=== PATIENT | female | born 1980 | race American Indian/Alaskan Native ===

== ENCOUNTER 2019-03-20 21:26 | Emergency (ER) | payer SELFPAY ==
[2019-03-20 22:30] VITALS: BP 130/82
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
== END 2019-03-21 02:09 | disposition home or self-care (01) ==
LOC: ED 21:26
DX: M54.2 Cervicalgia (principal); M25.511 Pain in right shoulder; F17.200 Nicotine dependence, unspecified, uncomplicated; Z98.51 Tubal ligation status; Z88.1 Allergy status to other antibiotic agents; V49.49XA Driver injured in collision with other motor vehicles in traffic accident, initial encounter; X58.XXXA Exposure to other specified factors, initial encounter; Y93.89 Activity, other specified; Y92.89 Other specified places as the place of occurrence of the external cause; Y99.8 Other external cause status
CPT/HCPCS: 72040

== ENCOUNTER 2021-02-03 23:25 | Emergency (ER) | payer SELFPAY ==
[2021-02-04 01:59] VITALS: BP 137/87
[2021-02-04 02:58] LABS: Basophils % (Auto) 0.7 % (0.0-1.8); Eosinophils % (Auto) 1.1 % (0.0-4.3); Hematocrit 24.3 % (30.3-42.9); Hemoglobin 7.6 gm/dl (10.1-14.3); Lymphocytes % (Auto) 26.9 % (13.4-35.0); Mean Corpuscular HGB Conc 31 % (30-34); Monocytes # (Auto) 0.5 K/mm3 (0.0-0.8); Monocytes % (Auto) 12.1 % (0.0-7.3); Platelet Count 231 K/mm3 (140-440); Red Blood Count 3.66 M/mm3 (3.65-5.03)
[2021-02-04 03:10] LABS: Mean Corpuscular Volume 66 fl (79-97); Red Cell Distribution Width 21.2 % (13.2-15.2)
[2021-02-04 03:19] LABS: Alanine Aminotransferase 20 units/L (7-56); BUN/Creatinine Ratio 8; Blood Urea Nitrogen 6 mg/dL (7-17); Calcium 9.3 mg/dL (8.4-10.2); Hemolysis Index 0
[2021-02-04 03:21] LABS: Erythrocyte Sedimentation Rate 68 mm/Hr (0-20)
--- NOTE | 2021-02-04 05:16 | Emergency Department Report ---
ED General Adult HPI - General Chief complaint: Pain General Stated complaint: BODY ACHES/HANDS/FEET SWELLING Time Seen by Provider: 02/04/21 02:19 Source: patient Mode of arrival: Ambulatory Limitations: No Limitations - Related Data Previous Rx's Medication Instructions Recorded Last Taken Type Nystas/Diphen/Xyl Visc/Mylanta 15 ml MM Q6H PRN #120 ml 06/04/18 Unknown Rx [Magic Mouthwash] Cyclobenzaprine [Flexeril] 10 mg PO QHS #20 tablet 03/21/19 Unknown Rx Ibuprofen [Motrin 800 MG tab] 800 mg PO Q8HR #30 tablet 03/21/19 Unknown Rx Ferrous Sulfate [Iron 325 MG] 325 mg PO DAILY #30 tablet 02/04/21 Unknown Rx Allergies Allergy/AdvReac Type Severity Reaction Status Date / Time amoxicillin Allergy Rash Verified 03/20/19 23:04 ED Review of Systems ROS: Stated complaint: BODY ACHES/HANDS/FEET SWELLING Other details as noted in HPI Comment: All other systems reviewed and negative ED Past Medical Hx - Past Medical History Previous Medical History?: Yes Hx Asthma: Yes Additional medical history: anemia - Surgical History Past Surgical History?: No Additional Surgical History: Tubal Ligation, Csection x 3 - Social History Smoking Status: Current Every Day Smoker Substance Use Type: Marijuana - Medications Home Medications: Home Medications Medication Instructions Recorded Confirmed Last Taken Type Nystas/Diphen/Xyl Visc/Mylanta 15 ml MM Q6H PRN #120 ml 06/04/18 Unknown Rx [Magic Mouthwash] Cyclobenzaprine [Flexeril] 10 mg PO QHS #20 tablet 03/21/19 Unknown Rx Ibuprofen [Motrin 800 MG tab] 800 mg PO Q8HR #30 tablet 03/21/19 Unknown Rx Ferrous Sulfate [Iron 325 MG] 325 mg PO DAILY #30 tablet 02/04/21 Unknown Rx ED Physical Exam - General Limitations: No Limitations General appearance: alert, in no apparent distress - Head Head exam: Present: atraumatic, normocephalic, normal inspection - Eye Eye exam: Present: normal appearance, PERRL, EOMI. Absent: conjunctival injection, nystagmus, periorbital swelling, periorbital tenderness Pupils: Present: normal accommodation - ENT ENT exam: Present: normal exam, normal orophraynx, mucous membranes moist, TM's normal bilaterally - Neck Neck exam: Present: normal inspection, full ROM - Respiratory Respiratory exam: Present: normal lung sounds bilaterally. Absent: respiratory distress, wheezes, rales - Cardiovascular Cardiovascular Exam: Present: regular rate, normal rhythm. Absent: systolic murmur, diastolic murmur, rubs, gallop - GI/Abdominal GI/Abdominal exam: Present: soft, normal bowel sounds - Rectal Rectal exam: Present: normal rectal tone, heme (-) stool, hemorrhoids. Absent: fecal impaction - External exam: Present: normal external exam - Extremities Exam Extremities exam: Present: normal inspection, normal capillary refill - Back Exam Back exam: Present: normal inspection - Neurological Exam Neurological exam: Present: alert, oriented X3 - Psychiatric Psychiatric exam: Present: normal affect, normal mood - Skin Skin exam: Present: warm, dry, intact, normal color. Absent: rash ED Course Vital Signs 02/04/21 00:46 Temperature 99.5 F Pulse Rate 87 Respiratory 18 Rate Blood Pressure 137/87 O2 Sat by Pulse 99 Oximetry ED Medical Decision Making - Lab Data Result diagrams: 02/04/21 02:23 02/04/21 02:23 - EKG Data Rate: normal - Medical Decision Making 40-year-old female with past medical history of anemia presents emerged department complaining of a 2-week history of progressively worsening polyarthralgia associated with fatigue weakness and shortness of breath off and on of unknown etiology. Initially she was suspicious of COVID-19 but had 3 - tests so decided to get checked for her anemia. States has been out of iron pills for some time has been trying to take Geritol with some liquid vitamin. She reports no vaginal bleeding, no hemoptysis no hematemesis hematochezia, no fever, chills, sweats. Vital signs have remained stable throughout her ED visit occult stools were negative as well. Laboratory data suggests a microcytic anemia very unlikely iron Critical care attestation.: If time is entered above; I have spent that time in minutes in the direct care of this critically ill patient, excluding procedure time. ED Disposition Clinical Impression: Anemia, Polyarthralgia, Fatigue Disposition: DC-01 TO HOME OR SELFCARE Is pt being admited?: No Does the pt Need Aspirin: No Condition: Stable Instructions: Ferritin Test, Hematocrit Test, Blood Transfusion, Adult, Care After, [id number], Arthritis, [id number] Prescriptions: Ferrous Sulfate [Iron 325 MG] 325 mg PO DAILY #30 tablet Referrals: PRIMARY CARE, [Primary Care Provider] - 3-5 Days KENZIE LEON MD [Referring] - 3-5 Days JODIE AMBRIZ MD [Referring] - 3-5 Days MELYSSA GROVER MD [Staff Physician] - 3-5 Days BRUNO CASANOVA MD [Staff Physician] - 3-5 Days
== END 2021-02-04 06:30 | disposition home or self-care (01) ==
LOC: ED 23:25
DX: D64.9 Anemia, unspecified (principal); M79.18 Myalgia, other site; M25.59 Pain in other specified joint; J45.909 Unspecified asthma, uncomplicated; R53.83 Other fatigue; F17.200 Nicotine dependence, unspecified, uncomplicated; F12.90 Cannabis use, unspecified, uncomplicated; Z98.890 Other specified postprocedural states; Z79.899 Other long term (current) drug therapy; Z98.51 Tubal ligation status
CPT/HCPCS: 36415; 80053; 84443; 85025; 85652; 86140; 99283

== ENCOUNTER 2021-10-01 13:16 | Inpatient (IN) | payer OTHER ==
[2021-10-01] MEDS ORDERED: SODIUM CHLORIDE 0.9% 1000 ML 1,000 ML IV ONE ×2 (13:40→14:56)
--- NOTE | 2021-10-01 13:44 | Emergency Department Report ---
ED Altered Mental Status HPI - General Chief Complaint: Altered Mental Status Stated Complaint: ALTERED MENTAL STATUS Time Seen by Provider: 10/01/21 13:40 Source: EMS Mode of arrival: Stretcher Limitations: No Limitations - History of Present Illness Initial Comments: Patient is 41 years old female with history of lupus. Patient brought to the emergency room via EMS from home for evaluation of altered mental status and one syncopal episode that happened this morning. EMS stated that patient went to the bathroom and had a syncopal episode and she become altered since then. Patient is alert, oriented in time and person but not in place. Patient stated that she thinks she is in [place]. Patient denied any fever or chills. No previous seizure. Patient currently denying any symptoms including chest pain, shortness of breath, headache, nausea vomiting or weakness numbness or tingling sensation. Patient stated that she does not remember the syncopal episode. MD Complaint: altered mental status, confusion -: Sudden, This morning Associated Symptoms: denies other symptoms - Related Data Home Medications Medication Instructions Recorded Confirmed Last Taken Eliquis 2.5 mg PO BID 10/01/21 10/01/21 Unknown Allergies Allergy/AdvReac Type Severity Reaction Status Date / Time amoxicillin Allergy Rash Verified 03/20/19 23:04 ED Review of Systems ROS: Stated complaint: ALTERED MENTAL STATUS Other details as noted in HPI Comment: All other systems reviewed and negative Constitutional: denies: chills, fever Respiratory: denies: cough, shortness of breath, SOB with exertion Cardiovascular: denies: chest pain, palpitations Gastrointestinal: denies: abdominal pain, nausea, vomiting, diarrhea, constipation, hematemesis, melena, hematochezia Musculoskeletal: denies: back pain Psychiatric: denies: anxiety, depression, auditory hallucinations, visual hallucinations, homicidal thoughts, suicidal thoughts ED Past Medical Hx - Past Medical History Hx Asthma: Yes Additional medical history: anemia - Surgical History Additional Surgical History: Tubal Ligation, Csection x 3 - Social History Smoking Status: Current Every Day Smoker Substance Use Type: Marijuana - Medications Home Medications: Home Medications Medication Instructions Recorded Confirmed Last Taken Type Eliquis 2.5 mg PO BID 10/01/21 10/01/21 Unknown History ED Physical Exam - General Limitations: No Limitations General appearance: alert, in no apparent distress - Head Head exam: Present: atraumatic, normocephalic, normal inspection - Eye Eye exam: Present: normal appearance - ENT ENT exam: Present: normal exam, normal orophraynx, mucous membranes moist - Neck Neck exam: Present: normal inspection, full ROM. Absent: tenderness, meningismus - Respiratory Respiratory exam: Present: normal lung sounds bilaterally - Cardiovascular Cardiovascular Exam: Present: regular rate, normal rhythm, normal heart sounds - GI/Abdominal GI/Abdominal exam: Present: soft, normal bowel sounds. Absent: distended, tenderness, guarding, rebound, rigid, organomegaly, mass, bruit, pulsatile mass, hernia - Extremities Exam Extremities exam: Present: normal inspection, full ROM, normal capillary refill. Absent: tenderness - Back Exam Back exam: Present: normal inspection, full ROM. Absent: CVA tenderness (R), CVA tenderness (L) - Neurological Exam Neurological exam: Present: alert, oriented X3, CN II-XII intact. Absent: motor sensory deficit - Psychiatric Psychiatric exam: Present: normal mood - Skin Skin exam: Present: warm, intact, normal color ED Course Vital Signs 10/01/21 13:21 Pulse Rate 90 Respiratory 14 Rate Blood Pressure 110/76 [Right] O2 Sat by Pulse 97 Oximetry - Reevaluation(s) Reevaluation #1: 10/01/21 15:02 Patient now is alert, oriented x3 in no acute distress. Patient stated that she is feeling fine. Reevaluation #2: 10/01/21 17:02 Patient developed generalized tonic clonic seizure witnessed by nurse. Patient is postictal now. Patient given Ativan and Keppra. - Lab Data Result diagrams: 10/01/21 13:46 10/01/21 13:46 Lab Results 10/01/21 10/01/21 10/01/21 Range/Units 13:46 13:46 13:46 WBC 4.1 L (4.5-11.0) K/mm3 RBC 4.12 (3.65-5.03) M/mm3 Hgb 12.7 (10.1-14.3) gm/dl Hct 39.6 (30.3-42.9) % MCV 96 (79-97) fl MCH 31 (28-32) pg MCHC 32 (30-34) % RDW 13.1 L (13.2-15.2) % Plt Count 152 (140-440) K/mm3 Lymph % (Auto) 14.7 (13.4-35.0) % Howell % (Auto) 5.8 (0.0-7.3) % Eos % (Auto) 0.0 (0.0-4.3) % Baso % (Auto) 0.6 (0.0-1.8) % Lymph # (Auto) 0.6 L (1.2-5.4) K/mm3 Howell # (Auto) 0.2 (0.0-0.8) K/mm3 Eos # (Auto) 0.0 (0.0-0.4) K/mm3 Baso # (Auto) 0.0 (0.0-0.1) K/mm3 Seg Neutrophils % 78.9 H (40.0-70.0) % Seg Neutrophils # 3.2 (1.8-7.7) K/mm3 PT 12.1 L (12.2-14.9) Sec. INR 0.81 L (0.87-1.13) APTT 24.7 (24.2-36.6) Sec. Sodium (137-145) mmol/L Potassium (3.6-5.0) mmol/L Chloride (98-107) mmol/L Carbon Dioxide (22-30) mmol/L Anion Gap mmol/L BUN (7-17) mg/dL Creatinine (0.6-1.2) mg/dL Estimated GFR ml/min BUN/Creatinine Ratio % Glucose (65-100) mg/dL Lactic Acid (0.7-2.0) mmol/L Calcium (8.4-10.2) mg/dL Total Bilirubin (0.1-1.2) mg/dL Direct Bilirubin (0-0.2) mg/dL Indirect Bilirubin mg/dL AST (5-40) units/L ALT (7-56) units/L Alkaline Phosphatase (35-129) units/L Ammonia (25-60) umol/L Total Creatine Kinase (30-135) units/L Troponin T 0.017 (0.00-0.029) ng/mL Total Protein (6.3-8.2) g/dL Albumin (3.9-5) g/dL Albumin/Globulin Ratio % HCG, Qual (Negative) Urine Color (Yellow) Urine Turbidity (Clear) Urine pH (5.0-7.0) Ur Specific [place] (1.003-1.030) Urine Protein (Negative) mg/dL Urine Glucose (UA) (Negative) mg/dL Urine Ketones (Negative) mg/dL Urine Blood (Negative) Urine Nitrite (Negative) Urine Bilirubin (Negative) Urine Urobilinogen (<2.0) mg/dL Ur Leukocyte Esterase (Negative) Urine WBC (Auto) (0.0-6.0) /HPF Urine RBC (Auto) (0.0-6.0) /HPF U Epithel Cells (Auto) (0-13.0) /HPF Urine Bacteria (Auto) (Negative) /HPF Plasma/Serum Alcohol (0-0.07) % Blood Type Antibody Screen 10/01/21 10/01/21 10/01/21 Range/Units 13:46 13:46 13:46 WBC (4.5-11.0) K/mm3 RBC (3.65-5.03) M/mm3 Hgb (10.1-14.3) gm/dl Hct (30.3-42.9) % MCV (79-97) fl MCH (28-32) pg MCHC (30-34) % RDW (13.2-15.2) % Plt Count (140-440) K/mm3 Lymph % (Auto) (13.4-35.0) % Howell % (Auto) (0.0-7.3) % Eos % (Auto) (0.0-4.3) % Baso % (Auto) (0.0-1.8) % Lymph # (Auto) (1.2-5.4) K/mm3 Howell # (Auto) (0.0-0.8) K/mm3 Eos # (Auto) (0.0-0.4) K/mm3 Baso # (Auto) (0.0-0.1) K/mm3 Seg Neutrophils % (40.0-70.0) % Seg Neutrophils # (1.8-7.7) K/mm3 PT (12.2-14.9) Sec. INR (0.87-1.13) APTT (24.2-36.6) Sec. Sodium 139 (137-145) mmol/L Potassium 3.0 L (3.6-5.0) mmol/L Chloride 102.6 (98-107) mmol/L Carbon Dioxide 19 L (22-30) mmol/L Anion Gap 20 mmol/L BUN 11 (7-17) mg/dL Creatinine 1.0 (0.6-1.2) mg/dL Estimated GFR > 60 ml/min BUN/Creatinine Ratio 11 % Glucose 89 (65-100) mg/dL Lactic Acid 3.70 H* (0.7-2.0) mmol/L Calcium 8.7 (8.4-10.2) mg/dL Total Bilirubin 0.20 (0.1-1.2) mg/dL Direct Bilirubin < 0.2 (0-0.2) mg/dL Indirect Bilirubin 0.0 mg/dL AST 15 (5-40) units/L ALT 7 (7-56) units/L Alkaline Phosphatase 61 (35-129) units/L Ammonia 21.0 L (25-60) umol/L Total Creatine Kinase 57 (30-135) units/L Troponin T 0.018 (0.00-0.029) ng/mL Total Protein 6.0 L (6.3-8.2) g/dL Albumin 2.8 L (3.9-5) g/dL Albumin/Globulin Ratio 0.9 % HCG, Qual (Negative) Urine Color (Yellow) Urine Turbidity (Clear) Urine pH (5.0-7.0) Ur Specific [place] (1.003-1.030) Urine Protein (Negative) mg/dL Urine Glucose (UA) (Negative) mg/dL Urine Ketones (Negative) mg/dL Urine Blood (Negative) Urine Nitrite (Negative) Urine Bilirubin (Negative) Urine Urobilinogen (<2.0) mg/dL Ur Leukocyte Esterase (Negative) Urine WBC (Auto) (0.0-6.0) /HPF Urine RBC (Auto) (0.0-6.0) /HPF U Epithel Cells (Auto) (0-13.0) /HPF Urine Bacteria (Auto) (Negative) /HPF Plasma/Serum Alcohol (0-0.07) % Blood Type Antibody Screen 10/01/21 10/01/21 10/01/21 Range/Units 13:46 13:46 13:46 WBC (4.5-11.0) K/mm3 RBC (3.65-5.03) M/mm3 Hgb (10.1-14.3) gm/dl Hct (30.3-42.9) % MCV (79-97) fl MCH (28-32) pg MCHC (30-34) % RDW (13.2-15.2) % Plt Count (140-440) K/mm3 Lymph % (Auto) (13.4-35.0) % Howell % (Auto) (0.0-7.3) % Eos % (Auto) (0.0-4.3) % Baso % (Auto) (0.0-1.8) % Lymph # (Auto) (1.2-5.4) K/mm3 Howell # (Auto) (0.0-0.8) K/mm3 Eos # (Auto) (0.0-0.4) K/mm3 Baso # (Auto) (0.0-0.1) K/mm3 Seg Neutrophils % (40.0-70.0) % Seg Neutrophils # (1.8-7.7) K/mm3 PT (12.2-14.9) Sec. INR (0.87-1.13) APTT (24.2-36.6) Sec. Sodium (137-145) mmol/L Potassium (3.6-5.0) mmol/L Chloride (98-107) mmol/L Carbon Dioxide (22-30) mmol/L Anion Gap mmol/L BUN (7-17) mg/dL Creatinine (0.6-1.2) mg/dL Estimated GFR ml/min BUN/Creatinine Ratio % Glucose (65-100) mg/dL Lactic Acid (0.7-2.0) mmol/L Calcium (8.4-10.2) mg/dL Total Bilirubin (0.1-1.2) mg/dL Direct Bilirubin (0-0.2) mg/dL Indirect Bilirubin mg/dL AST (5-40) units/L ALT (7-56) units/L Alkaline Phosphatase (35-129) units/L Ammonia (25-60) umol/L Total Creatine Kinase (30-135) units/L Troponin T (0.00-0.029) ng/mL Total Protein (6.3-8.2) g/dL Albumin (3.9-5) g/dL Albumin/Globulin Ratio % HCG, Qual Negative (Negative) Urine Color (Yellow) Urine Turbidity (Clear) Urine pH (5.0-7.0) Ur Specific [place] (1.003-1.030) Urine Protein (Negative) mg/dL Urine Glucose (UA) (Negative) mg/dL Urine Ketones (Negative) mg/dL Urine Blood (Negative) Urine Nitrite (Negative) Urine Bilirubin (Negative) Urine Urobilinogen (<2.0) mg/dL Ur Leukocyte Esterase (Negative) Urine WBC (Auto) (0.0-6.0) /HPF Urine RBC (Auto) (0.0-6.0) /HPF U Epithel Cells (Auto) (0-13.0) /HPF Urine Bacteria (Auto) (Negative) /HPF Plasma/Serum Alcohol < 0.01 (0-0.07) % Blood Type O POSITIVE Antibody Screen Negative 10/01/21 Range/Units Unknown WBC (4.5-11.0) K/mm3 RBC (3.65-5.03) M/mm3 Hgb (10.1-14.3) gm/dl Hct (30.3-42.9) % MCV (79-97) fl MCH (28-32) pg MCHC (30-34) % RDW (13.2-15.2) % Plt Count (140-440) K/mm3 Lymph % (Auto) (13.4-35.0) % Howell % (Auto) (0.0-7.3) % Eos % (Auto) (0.0-4.3) % Baso % (Auto) (0.0-1.8) % Lymph # (Auto) (1.2-5.4) K/mm3 Howell # (Auto) (0.0-0.8) K/mm3 Eos # (Auto) (0.0-0.4) K/mm3 Baso # (Auto) (0.0-0.1) K/mm3 Seg Neutrophils % (40.0-70.0) % Seg Neutrophils # (1.8-7.7) K/mm3 PT (12.2-14.9) Sec. INR (0.87-1.13) APTT (24.2-36.6) Sec. Sodium (137-145) mmol/L Potassium (3.6-5.0) mmol/L Chloride (98-107) mmol/L Carbon Dioxide (22-30) mmol/L Anion Gap mmol/L BUN (7-17) mg/dL Creatinine (0.6-1.2) mg/dL Estimated GFR ml/min BUN/Creatinine Ratio % Glucose (65-100) mg/dL Lactic Acid (0.7-2.0) mmol/L Calcium (8.4-10.2) mg/dL Total Bilirubin (0.1-1.2) mg/dL Direct Bilirubin (0-0.2) mg/dL Indirect Bilirubin mg/dL AST (5-40) units/L ALT (7-56) units/L Alkaline Phosphatase (35-129) units/L Ammonia (25-60) umol/L Total Creatine Kinase (30-135) units/L Troponin T (0.00-0.029) ng/mL Total Protein (6.3-8.2) g/dL Albumin (3.9-5) g/dL Albumin/Globulin Ratio % HCG, Qual (Negative) Urine Color Yellow (Yellow) Urine Turbidity Hazy (Clear) Urine pH 7.0 (5.0-7.0) Ur Specific [place] 1.009 (1.003-1.030) Urine Protein >500 (Negative) mg/dL Urine Glucose (UA) Neg (Negative) mg/dL Urine Ketones Neg (Negative) mg/dL Urine Blood Lg (Negative) Urine Nitrite Neg (Negative) Urine Bilirubin Neg (Negative) Urine Urobilinogen < 2.0 (<2.0) mg/dL Ur Leukocyte Esterase Neg (Negative) Urine WBC (Auto) 17.0 H (0.0-6.0) /HPF Urine RBC (Auto) 34.0 (0.0-6.0) /HPF U Epithel Cells (Auto) 1.0 (0-13.0) /HPF Urine Bacteria (Auto) 1+ (Negative) /HPF Plasma/Serum Alcohol (0-0.07) % Blood Type Antibody Screen Critical Care Time: Yes Critical care time in (mins) excluding proc time.: 45 Critical care attestation.: If time is entered above; I have spent that time in minutes in the direct care of this critically ill patient, excluding procedure time. ED Disposition Clinical Impression: Altered mental status, Seizure Disposition: 09 ADMITTED INPATIENT Is pt being admited?: Yes Condition: Stable
[2021-10-01 14:27] LABS: Basophils % (Auto) 0.6 % (0.0-1.8); Hematocrit 39.6 % (30.3-42.9); Hemoglobin 12.7 gm/dl (10.1-14.3); Lymphocytes # (Auto) 0.6 K/mm3 (1.2-5.4); Lymphocytes % (Auto) 14.7 % (13.4-35.0); Mean Corpuscular HGB Conc 32 % (30-34); Mean Corpuscular Volume 96 fl (79-97); Monocytes # (Auto) 0.2 K/mm3 (0.0-0.8); Monocytes % (Auto) 5.8 % (0.0-7.3); Platelet Count 152 K/mm3 (140-440); Red Blood Count 4.12 M/mm3 (3.65-5.03); Red Cell Distribution Width 13.1 % (13.2-15.2)
--- NOTE | 2021-10-01 14:31 | Cat Scan Report ---
CT BRAIN: 10/01/2021 INDICATION / CLINICAL INFORMATION: Altered Mental Status. COMPARISON: None available. FINDINGS: BRAIN/INTRACRANIAL STRUCTURES: Unenhanced CT images of the brain demonstrate no evidence of acute abn ormality. Ventricles and sulci are at the upper limits of normal in size and shape for a patient of this age. There is no evidence of acute ischemic injury, hemorrhage, or mass. There are no abnormal extra-axial fluid collections. EXTRACRANIAL STRUCTURES: Unremarkable. IMPRESSION: No acute abnormality. All CT scans at this location are performed using dose reduction to ALARA by means of automated expos ure control. Signer Name: Albert Weston MD Signed: 10/01/2021 2:27 PM Workstation Name: [email or web address]
[2021-10-01 14:35] LABS: Alanine Aminotransferase 7 units/L (7-56); Albumin 2.8 g/dL (3.9-5); BUN/Creatinine Ratio 11; Blood Urea Nitrogen 11 mg/dL (7-17); Calcium 8.7 mg/dL (8.4-10.2); Hemolysis Index 20
[2021-10-01 14:36] LABS: Bilirubin,Direct < 0.2 mg/dL (0-0.2); INR 0.81 (0.87-1.13); Partial Thromboplastin Time 24.7 Sec. (24.2-36.6)
--- NOTE | 2021-10-01 14:56 | XRay Report ---
CHEST 1 VIEW INDICATION: Altered Mental Status. COMPARISON: None FINDINGS: Support devices: None. Heart: Mild cardiomegaly Lungs/Pleura: Mild pulmonary venous congestion and small left pleural effusion. No infiltrate or pneu mothorax. Additional findings: None. IMPRESSION: Mild CHF Signer Name: Jose Hollis Jr, MD Signed: 10/01/2021 2:52 PM Workstation Name: [id number]
[2021-10-01] MEDS: POTASSIUM CHLORIDE 10 MEQ 10 MEQ/100 ML BAG IV SCH ×2 (15:49→16:37)
[2021-10-01] MEDS ORDERED: MORPHINE 4 MG/1 ML INJ IV ONE (16:39)
[2021-10-01] MEDS ORDERED: hydrALAZINE 20 MG/1 ML INJ IV ONE (16:39)
[2021-10-01] MEDS ORDERED: ONDANSETRON 4 MG/2 ML INJ IV ONE (16:39)
[2021-10-01] MEDS ORDERED: LORazepam 2 MG/ML VIAL ONE (16:45)
[2021-10-01] MEDS ORDERED: levETIRAcetam 1,000 MG in DEXTROSE 5% IN WATER 100 ML IV ONE (16:47)
[2021-10-01] MEDS ORDERED: LORazepam 2 MG/ML VIAL IV ONE (16:54)
[2021-10-01 16:55] LABS: Bacteria,Urine 1+ /HPF (Negative); Bilirubin,Urine NEG (Negative); Blood,Urine LG (Negative); Color,Urine Yellow (Yellow); Urobilinogen,Urine < 2.0 mg/dL (<2.0)
[2021-10-01 16:57] LABS: Protein,Urine >500 mg/dL (Negative)
[2021-10-01] MEDS ORDERED: levETIRAcetam 1000 MG/NS 0.75% 1,000 MG/100 ML BAG IV ONE (16:57)
[2021-10-01 17:03] LABS: Amphetamine Screen,Urine Negative; Benzodiazepines Screen,Urine Negative; Cocaine Screen,Urine Negative; Methadone Screen,Urine Negative; Opiate Screen,Urine Negative
[2021-10-01 17:19] LABS: Cannabinoid Screen,Urine Positive
[2021-10-01] MEDS ORDERED: oxyCODONE /ACETAMINOPHEN 5-325MG TAB PO PRN (21:02)
[2021-10-01] MEDS ORDERED: HYDROmorphone 1 MG/1 ML INJ IV PRN (21:02)
[2021-10-01] MEDS ORDERED: ACETAMINOPHEN 325 MG TAB PO PRN (21:02)
[2021-10-01] MEDS ORDERED: METOCLOPRAMIDE 10 MG/2 ML INJ IV PRN (21:02)
[2021-10-01] MEDS ORDERED: ONDANSETRON 4 MG/2 ML INJ IV PRN (21:02)
--- NOTE | 2021-10-01 21:02 | History and Physical Report ---
History of Present Illness Date of examination: 10/01/21 Date of admission: October 01, 2021 Chief complaint: Seizures X2 today--first time in her life History of present illness: 41-year-old female with history of lupus and on anticoagulation brought in by EMS from home for new onset seizures. Patient had 2 episodes of seizure. 1 episode in the home and one episode in the emergency room. Tonic-clonic movements. Patient is confused and altered. Patient thinks that she is in [place]. at the bedside. As per the no previous seizures. Has a history of lupus and being treated for it. Also has asthma. No fever or chills. Vaccination status was not asked. Will defer to primary team - Past Medical History --Asthma: Yes --Additional medical history: anemia --Lupus - Surgical History --Additional Surgical History: Tubal Ligation, Csection x 3 - Social History --Smoking Status: Current Every Day Smoker --Substance Use Type: Marijuana -Family history --Htn Review of Systems ROS: Constitutional no weight loss or weight gain no fever or chills HEENT no sore throat no post nasal drip no diplopia Neck no neck stiffness no lymph gland enlargement Chest and lungs no shortness of breath cough or wheezing CVS no chest pain no diaphoresis no palpitations GI no nausea no vomiting no diarrhea Genitourinary system no dysuria no flank pain Musculoskeletal system no muscle pains no joint pains [employer] new onset seizures and altered sensorium Skin no rash no itching Psychiatric no depression no homicidal or suicidal tendencies Hematologic no lymphedema or bruising Endocrine no polydipsia no polyuria no cold intolerance no heat intolerance Medications and Allergies Allergies Allergy/AdvReac Type Severity Reaction Status Date / Time amoxicillin Allergy Rash Verified 03/20/19 23:04 Home Medications Medication Instructions Recorded Confirmed Last Taken Type Albuterol Sulfate [Proair 90 mcg 10/01/21 Unknown History Respiclick] Beclomethasone Dipropionate [Qvar] 8.7 gm 10/01/21 Unknown History Budesonide-Formoterol 80-4.5 10/01/21 Unknown History Eliquis 2.5 mg PO BID 10/01/21 10/01/21 Unknown History Folic Acid 1 mg PO DAILY 10/01/21 10/01/21 Unknown History Furosemide [Lasix TAB] 20 mg PO DAILY 10/01/21 10/01/21 Unknown History Hydroxychloroquine 200 mg PO DAILY 10/01/21 10/01/21 Unknown History amLODIPine 10 mg PO DAILY 10/01/21 10/01/21 Unknown History carvediloL 6.25 mg PO BID 10/01/21 10/01/21 Unknown History Exam - Constitutional Vitals: Temp Pulse Resp BP Pulse Ox 78 16 162/88 97 10/01/21 17:52 10/01/21 17:52 10/01/21 17:52 10/01/21 17:52 General appearance: Present: no acute distress, well-nourished - EENT Eyes: Present: PERRL ENT: hearing intact, clear oral mucosa - Neck Neck: Present: supple, normal ROM - Respiratory Respiratory effort: normal Respiratory: bilateral: CTA - Cardiovascular Heart rate: 78 Rhythm: regular Heart Sounds: Present: S1 & S2. Absent: rub, click - Extremities Extremities: no ischemia, pulses symmetrical, No edema Peripheral Pulses: within normal limits - Abdominal General gastrointestinal: Present: soft, non-tender, non-distended, normal bowel sounds Female genitourinary: Present: normal - Rectal Rectal Exam: deferred - Integumentary Integumentary: Present: clear, warm, dry - Musculoskeletal Musculoskeletal: gait normal, strength equal bilaterally - Psychiatric Psychiatric: appropriate mood/affect, intact judgment & insight - Neurologic Neurologic: CNII-XII intact, moves all extremities, other (Altered sensorium and patient is postictal) HEART Score - HEART Score Troponin: Troponin T 0.017 ng/mL (0.00-0.029) 10/01/21 13:46 Troponin T 0.018 ng/mL (0.00-0.029) 10/01/21 13:46 Results - Labs CBC & Chem 7: 10/01/21 13:46 10/01/21 13:46 Labs: Laboratory Last Values WBC 4.1 K/mm3 (4.5-11.0) L 10/01/21 13:46 RBC 4.12 M/mm3 (3.65-5.03) 10/01/21 13:46 Hgb 12.7 gm/dl (10.1-14.3) 10/01/21 13:46 Hct 39.6 % (30.3-42.9) 10/01/21 13:46 MCV 96 fl (79-97) 10/01/21 13:46 MCH 31 pg (28-32) 10/01/21 13:46 MCHC 32 % (30-34) 10/01/21 13:46 RDW 13.1 % (13.2-15.2) L 10/01/21 13:46 Plt Count 152 K/mm3 (140-440) 10/01/21 13:46 Lymph % (Auto) 14.7 % (13.4-35.0) 10/01/21 13:46 [place] % (Auto) 5.8 % (0.0-7.3) 10/01/21 13:46 Eos % (Auto) 0.0 % (0.0-4.3) 10/01/21 13:46 Baso % (Auto) 0.6 % (0.0-1.8) 10/01/21 13:46 Lymph # (Auto) 0.6 K/mm3 (1.2-5.4) L 10/01/21 13:46 [place] # (Auto) 0.2 K/mm3 (0.0-0.8) 10/01/21 13:46 Eos # (Auto) 0.0 K/mm3 (0.0-0.4) 10/01/21 13:46 Baso # (Auto) 0.0 K/mm3 (0.0-0.1) 10/01/21 13:46 Seg Neutrophils % 78.9 % (40.0-70.0) H 10/01/21 13:46 Seg Neutrophils # 3.2 K/mm3 (1.8-7.7) 10/01/21 13:46 PT 12.1 Sec. (12.2-14.9) L 10/01/21 13:46 INR 0.81 (0.87-1.13) L 10/01/21 13:46 APTT 24.7 Sec. (24.2-36.6) 10/01/21 13:46 Sodium 139 mmol/L (137-145) 10/01/21 13:46 Potassium 3.0 mmol/L (3.6-5.0) L 10/01/21 13:46 Chloride 102.6 mmol/L (98-107) 10/01/21 13:46 Carbon Dioxide 19 mmol/L (22-30) L 10/01/21 13:46 Anion Gap 20 mmol/L 10/01/21 13:46 BUN 11 mg/dL (7-17) 10/01/21 13:46 Creatinine 1.0 mg/dL (0.6-1.2) 10/01/21 13:46 Estimated GFR > 60 ml/min 10/01/21 13:46 BUN/Creatinine Ratio 11 % 10/01/21 13:46 Glucose 89 mg/dL (65-100) 10/01/21 13:46 Lactic Acid 3.70 mmol/L (0.7-2.0) H* 10/01/21 13:46 Calcium 8.7 mg/dL (8.4-10.2) 10/01/21 13:46 Total Bilirubin 0.20 mg/dL (0.1-1.2) 10/01/21 13:46 Direct Bilirubin < 0.2 mg/dL (0-0.2) 10/01/21 13:46 Indirect Bilirubin 0.0 mg/dL 10/01/21 13:46 AST 15 units/L (5-40) 10/01/21 13:46 ALT 7 units/L (7-56) 10/01/21 13:46 Alkaline Phosphatase 61 units/L (35-129) 10/01/21 13:46 Ammonia 21.0 umol/L (25-60) L 10/01/21 13:46 Total Creatine Kinase 57 units/L (30-135) 10/01/21 13:46 Troponin T 0.017 ng/mL (0.00-0.029) 10/01/21 13:46 Troponin T 0.018 ng/mL (0.00-0.029) 10/01/21 13:46 Total Protein 6.0 g/dL (6.3-8.2) L 10/01/21 13:46 Albumin 2.8 g/dL (3.9-5) L 10/01/21 13:46 Albumin/Globulin Ratio 0.9 % 10/01/21 13:46 HCG, Qual Negative (Negative) 10/01/21 13:46 Urine Color Yellow (Yellow) 10/01/21 Unknown Urine Turbidity Hazy (Clear) 10/01/21 Unknown Urine pH 7.0 (5.0-7.0) 10/01/21 Unknown Ur Specific [place] 1.009 (1.003-1.030) 10/01/21 Unknown Urine Protein >500 mg/dL (Negative) 10/01/21 Unknown Urine Glucose (UA) Neg mg/dL (Negative) 10/01/21 Unknown Urine Ketones Neg mg/dL (Negative) 10/01/21 Unknown Urine Blood Lg (Negative) 10/01/21 Unknown Urine Nitrite Neg (Negative) 10/01/21 Unknown Urine Bilirubin Neg (Negative) 10/01/21 Unknown Urine Urobilinogen < 2.0 mg/dL (<2.0) 10/01/21 Unknown Ur Leukocyte Esterase Neg (Negative) 10/01/21 Unknown Urine WBC (Auto) 17.0 /HPF (0.0-6.0) H 10/01/21 Unknown Urine RBC (Auto) 34.0 /HPF (0.0-6.0) 10/01/21 Unknown U Epithel Cells (Auto) 1.0 /HPF (0-13.0) 10/01/21 Unknown Urine Bacteria (Auto) 1+ /HPF (Negative) 10/01/21 Unknown Urine Opiates Screen Negative 10/01/21 Unknown Urine Methadone Screen Negative 10/01/21 Unknown Ur Barbiturates Screen Negative 10/01/21 Unknown Ur Phencyclidine Scrn Negative 10/01/21 Unknown Ur Amphetamines Screen Negative 10/01/21 Unknown U Benzodiazepines Scrn Negative 10/01/21 Unknown Urine Cocaine Screen Negative 10/01/21 Unknown U Marijuana (THC) Screen Positive 10/01/21 Unknown Drugs of Abuse Note Disclamer 10/01/21 Unknown Plasma/Serum Alcohol < 0.01 % (0-0.07) 10/01/21 13:46 Blood Type O POSITIVE 10/01/21 13:46 Antibody Screen Negative 10/01/21 13:46 Short CBC 10/01/21 Range/Units 13:46 WBC 4.1 L (4.5-11.0) K/mm3 Hgb 12.7 (10.1-14.3) gm/dl Hct 39.6 (30.3-42.9) % Plt Count 152 (140-440) K/mm3 BMP 10/01/21 13:46 Sodium 139 Potassium 3.0 L Chloride 102.6 Carbon Dioxide 19 L BUN 11 Creatinine 1.0 Glucose 89 Calcium 8.7 Cardiac Enzymes 10/01/21 10/01/21 Range/Units 13:46 13:46 Total Creatine Kinase 57 (30-135) units/L Troponin T 0.017 0.018 (0.00-0.029) ng/mL Liver Function 10/01/21 Range/Units 13:46 Total Bilirubin 0.20 (0.1-1.2) mg/dL Direct Bilirubin < 0.2 (0-0.2) mg/dL AST 15 (5-40) units/L ALT 7 (7-56) units/L Alkaline Phosphatase 61 (35-129) units/L Albumin 2.8 L (3.9-5) g/dL Urine 10/01/21 Range/Units Unknown Urine Color Yellow (Yellow) Urine pH 7.0 (5.0-7.0) Ur Specific [place] 1.009 (1.003-1.030) Urine Protein >500 (Negative) mg/dL Urine Glucose (UA) Neg (Negative) mg/dL Short CBC 10/01/21 Range/Units 13:46 WBC 4.1 L (4.5-11.0) K/mm3 Hgb 12.7 (10.1-14.3) gm/dl Hct 39.6 (30.3-42.9) % Plt Count 152 (140-440) K/mm3 BMP 10/01/21 13:46 Sodium 139 Potassium 3.0 L Chloride 102.6 Carbon Dioxide 19 L BUN 11 Creatinine 1.0 Glucose 89 Calcium 8.7 Cardiac Enzymes 10/01/21 10/01/21 Range/Units 13:46 13:46 Total Creatine Kinase 57 (30-135) units/L Troponin T 0.017 0.018 (0.00-0.029) ng/mL Liver Function 10/01/21 Range/Units 13:46 Total Bilirubin 0.20 (0.1-1.2) mg/dL Direct Bilirubin < 0.2 (0-0.2) mg/dL AST 15 (5-40) units/L ALT 7 (7-56) units/L Alkaline Phosphatase 61 (35-129) units/L Albumin 2.8 L (3.9-5) g/dL Urine 10/01/21 Range/Units Unknown Urine Color Yellow (Yellow) Urine pH 7.0 (5.0-7.0) Ur Specific [place] 1.009 (1.003-1.030) Urine Protein >500 (Negative) mg/dL Urine Glucose (UA) Neg (Negative) mg/dL Microbiology: Microbiology 10/01/21 13:46 Peripheral/Venous Blood Culture - Preliminary Culture in Progress 10/01/21 13:46 Peripheral/Venous Blood Culture - Preliminary Culture in Progress - Imaging and Cardiology Chest x-ray: report reviewed CT Scan - head: report reviewed Imaging and Cardiology: Chest x-ray Mild CHF Head CT No acute abnormalities Assessment and Plan Advance Directives: Yes (Full code) VTE prophylaxis?: Chemical Plan of care discussed with patient/family: Yes - Patient Problems (1) Acute encephalopathy Current Visit: Yes Status: Acute Plan to address problem: Patient is postictal and secondary to new onset seizures Patient had one episode of seizures and while in the emergency room--tonic-clonic type Patient started on IV Keppra To be transitioned to oral Keppra (2) New onset seizure Current Visit: Yes Status: Acute Plan to address problem: Patient started on IV Keppra Neurology consult requested (3) Hypokalemia Current Visit: Yes Status: Acute Plan to address problem: Supplemented (4) Elevated lactic acid level Current Visit: Yes Status: Acute Plan to address problem: Nonspecific Probably secondary to seizures (5) Lupus (systemic lupus erythematosus) Current Visit: Yes Status: Chronic Qualifiers: Systemic lupus erythematosus type: unspecified Plan to address problem: Not on any medications Patient to be asked about her lupus symptoms and medications We will defer to primary team (6) UTI (urinary tract infection) Current Visit: Yes Status: Acute Qualifiers: Urinary tract infection type: acute cystitis Plan to address problem: Macrobid 100 mg orally twice a day (7) DVT prophylaxis Current Visit: Yes Status: Acute Plan to address problem: On anticoagulation and GI prophylaxis (8) Advance care planning Current Visit: Yes Status: Acute Plan to address problem: Patient education conducted, care plan discussed, diagnosis discussed with . Prognosis discussed. Patient is full code. acknowledges understanding and agreement with care plan. +30 minutes.
[2021-10-02] MEDS: HEPARIN 5,000 UNIT/1 ML VIAL SUB-Q SCH ×3 (01:19→21:24)
[2021-10-02] MEDS: FAMOTIDINE 20 MG TAB PO SCH ×3 (01:19→21:10)
[2021-10-02] MEDS: levETIRAcetam 750 MG in DEXTROSE 5% IN WATER 100 ML IV SCH ×2 (05:17→18:47)
[2021-10-02] MEDS: D5W/0.9% NACL 1,000 ML IV SCH (05:18)
[2021-10-02 06:39] LABS: Basophils # (Auto) 0.1 K/mm3 (0.0-0.1); Hematocrit 38.1 % (30.3-42.9); Hemoglobin 12.8 gm/dl (10.1-14.3); Lymphocytes # (Auto) 1.1 K/mm3 (1.2-5.4); Lymphocytes % (Auto) 22.2 % (13.4-35.0); Mean Corpuscular HGB Conc 34 % (30-34); Mean Corpuscular Volume 95 fl (79-97); Monocytes # (Auto) 0.4 K/mm3 (0.0-0.8); Monocytes % (Auto) 8.9 % (0.0-7.3); Platelet Count 139 K/mm3 (140-440); Red Blood Count 4.02 M/mm3 (3.65-5.03); Red Cell Distribution Width 13.2 % (13.2-15.2)
[2021-10-02 06:59] LABS: Alanine Aminotransferase 5 units/L (7-56); Albumin 2.6 g/dL (3.9-5); BUN/Creatinine Ratio 11; Blood Urea Nitrogen 11 mg/dL (7-17); Calcium 8.4 mg/dL (8.4-10.2); Hemolysis Index 9
[2021-10-02] MEDS: hydrALAZINE 20 MG/1 ML INJ IV PRN (07:00)
--- NOTE | 2021-10-02 09:11 | Consultation ---
History of Present Illness Consult date: 10/02/21 Reason for Consult: New onset seizure,hx of lupus on Eliquis History of present illness: Seizures X2 today--first time in her life History of present illness: 41-year-old female with history of lupus and on anticoagulation brought in by EMS from home for new onset seizures. Patient had 2 episodes of seizure. 1 episode in the home and one episode in the emergency room. Tonic-clonic movements. Patient is confused and altered. Patient thinks that she is in [place]. at the bedside. As per the no previous seizures. Has a history of lupus and being treated for it. Also has asthma. No fever or chills. Vaccination status was not asked. Will defer to primary team today she is still confused no weakness no more seizure CT brain is unremarkable MRI brain is pending lactic acid#3.70 ammonia#21 UDS is positive for THC - Past Medical History --Asthma: Yes --Additional medical history: anemia --Lupus - Surgical History --Additional Surgical History: Tubal Ligation, Csection x 3 - Social History --Smoking Status: Current Every Day Smoker --Substance Use Type: Marijuana -Family history --Htn Review of Systems ROS: Constitutional no weight loss or weight gain no fever or chills HEENT no sore throat no post nasal drip no diplopia Neck no neck stiffness no lymph gland enlargement Chest and lungs no shortness of breath cough or wheezing CVS no chest pain no diaphoresis no palpitations GI no nausea no vomiting no diarrhea Genitourinary system no dysuria no flank pain Musculoskeletal system no muscle pains no joint pains [employer] new onset seizures and altered sensorium Skin no rash no itching Psychiatric no depression no homicidal or suicidal tendencies Hematologic no lymphedema or bruising Endocrine no polydipsia no polyuria no cold intolerance no heat intolerance Medications and Allergies Allergies Allergy/AdvReac Type Severity Reaction Status Date / Time amoxicillin Allergy Rash Verified 03/20/19 23:04 Home Medications Medication Instructions Recorded Confirmed Last Taken Type Albuterol Sulfate [Proair 90 mcg IH 10/01/21 Unknown History Respiclick] Beclomethasone Dipropionate [Qvar] 8.7 gm IH 10/01/21 Unknown History Budesonide-Formoterol 80-4.5 10/01/21 Unknown History Eliquis 2.5 mg PO BID 10/01/21 10/01/21 Unknown History Folic Acid 1 mg PO DAILY 10/01/21 10/01/21 Unknown History Furosemide [Lasix TAB] 20 mg PO DAILY 10/01/21 10/01/21 Unknown History Hydroxychloroquine 200 mg PO DAILY 10/01/21 10/01/21 Unknown History amLODIPine 10 mg PO DAILY 10/01/21 10/01/21 Unknown History carvediloL 6.25 mg PO BID 10/01/21 10/01/21 Unknown History Medications and Allergies Allergies Allergy/AdvReac Type Severity Reaction Status Date / Time amoxicillin Allergy Rash Verified 03/20/19 23:04 Home Medications Medication Instructions Recorded Confirmed Last Taken Type Albuterol Sulfate [Proair 90 mcg 10/01/21 Unknown History Respiclick] Beclomethasone Dipropionate [Qvar] 8.7 gm 10/01/21 Unknown History Budesonide-Formoterol 80-4.5 10/01/21 Unknown History Eliquis 2.5 mg PO BID 10/01/21 10/01/21 Unknown History Folic Acid 1 mg PO DAILY 10/01/21 10/01/21 Unknown History Furosemide [Lasix TAB] 20 mg PO DAILY 10/01/21 10/01/21 Unknown History Hydroxychloroquine 200 mg PO DAILY 10/01/21 10/01/21 Unknown History amLODIPine 10 mg PO DAILY 10/01/21 10/01/21 Unknown History carvediloL 6.25 mg PO BID 10/01/21 10/01/21 Unknown History Active Meds: Active Medications Acetaminophen (Acetaminophen 325 Mg Tab) 650 mg PO Q4H PRN PRN Reason: Pain MILD(1-3)/Fever >100.5/SIMS Famotidine (Famotidine 20 Mg Tab) 20 mg PO BID [facility] Last Admin: 10/02/21 01:19 Dose: Not Given Heparin Sodium (Porcine) (Heparin 5,000 Unit/1 Ml Vial) 5,000 unit SUB-Q Q12HR [facility] Last Admin: 10/02/21 01:19 Dose: Not Given Hydralazine HCl (Hydralazine 20 Mg/1 Ml Inj) 10 mg IV Q6HR PRN PRN Reason: Blood Pressure Last Admin: 10/02/21 07:00 Dose: 10 mg Hydromorphone HCl (Hydromorphone 1 Mg/1 Ml Inj) 0.5 mg IV Q3H PRN PRN Reason: Pain , Severe (7-10) Dextrose/Sodium Chloride (D5ns) 1,000 mls @ 100 mls/hr IV DIRECT [facility] Last Admin: 10/02/21 05:18 Dose: 100 mls/hr Levetiracetam 750 mg/ Dextrose 107.5 mls @ 400 mls/hr IV Q12H [facility] Last Admin: 10/02/21 05:17 Dose: 400 mls/hr Metoclopramide HCl (Metoclopramide 10 Mg/2 Ml Inj) 10 mg IV Q6H PRN PRN Reason: Nausea And Vomiting Nitrofurantoin Macrocrystals (Nitrofurantoin Monohyd/M-Cryst 100 Mg Cap) 100 mg PO Q12HR [facility] Ondansetron HCl (Ondansetron 4 Mg/2 Ml Inj) 4 mg IV Q8H PRN PRN Reason: Nausea And Vomiting Oxycodone/Acetaminophen (Oxycodone /Acetaminophen 5-325mg Tab) 1 tab PO Q6H PRN PRN Reason: Pain, Moderate (4-6) Potassium Chloride (Potassium Chloride Er 20 Meq Tab) 40 meq PO QDAY [facility] Sodium Chloride (Sodium Chloride 0.9% 10 Ml Flush Syringe) 10 ml IV BID [facility] Last Admin: 10/02/21 04:00 Dose: 10 ml Sodium Chloride (Sodium Chloride 0.9% 10 Ml Flush Syringe) 10 ml IV PRN PRN PRN Reason: LINE FLUSH Valsartan (Valsartan 160mg Tab) 160 mg PO DAILY [facility] Physical Examination - Vital Signs Vital Signs: Vital Signs Pulse Resp BP Pulse Ox 90 14 110/76 97 10/01/21 13:21 10/01/21 13:21 10/01/21 13:21 10/01/21 13:21 - Constitutional General appearance: comfortable - EENT EENT: Present: PERRL, mucous membranes moist - Respiratory Respiratory: Present: chest non-tender, lungs clear, rhonchi - Cardiovascular Cardiovascular: Present: regular rate, normal S1, normal S2 Extremities: Present: no peripheral edema bilatateraly, no clubbing, cyanosis - Gastrointestinal Gastrointestinal: Present: normoactive bowel sounds - Integumentary Integumentary: Present: normal - Neurologic Cranial nerve examination: PERRL, EOMI, intact Speech examination: other (slurred speech) Sensorimotor examination: other (she is confused some what lathergic , follow only simple command , no neck stiffness or rigidity is noted) Detailed motor examination: grossly full strength in Results - Laboratory Findings CBC and BMP: 10/02/21 06:19 10/02/21 06:19 Abnormal Lab Findings: Abnormal Labs 10/01/21 10/01/21 10/01/21 13:46 13:46 13:46 WBC 4.1 L RDW 13.1 L Plt Count [place] % (Auto) Lymph # (Auto) 0.6 L Seg Neutrophils % 78.9 H PT 12.1 L INR 0.81 L Potassium 3.0 L Chloride Carbon Dioxide 19 L Lactic Acid ALT Ammonia Total Protein 6.0 L Albumin 2.8 L Urine WBC (Auto) 10/01/21 10/01/21 10/01/21 13:46 13:46 Unknown WBC RDW Plt Count [place] % (Auto) Lymph # (Auto) Seg Neutrophils % PT INR Potassium Chloride Carbon Dioxide Lactic Acid 3.70 H* ALT Ammonia 21.0 L Total Protein Albumin Urine WBC (Auto) 17.0 H 10/02/21 10/02/21 06:19 06:19 WBC RDW Plt Count 139 L [place] % (Auto) 8.9 H Lymph # (Auto) 1.1 L Seg Neutrophils % PT INR Potassium 3.1 L Chloride 108.1 H Carbon Dioxide 20 L Lactic Acid ALT 5 L Ammonia Total Protein 5.9 L Albumin 2.6 L Urine WBC (Auto) Assessment and Plan Assessment and Plan 41-year-old female with history of lupus and on anticoagulation brought in by EMS from home for new onset seizures. Patient had 2 episodes of seizure. 1 episode in the home and one episode in the emergency room. Tonic-clonic movements. Patient is confused and altered. Patient thinks that she is in [place]. at the bedside. As per the no previous seizures. Has a history of lupus and being treated for it. Also has asthma. No fever or chills. Vaccination status was not asked. Will defer to primary team - Patient Problems # Acute encephalopathy -witnessed X2 seizure -still confused post ictal -r/o infection -lactic acid #3.70 -UDS is positive for THC -MRI brain with gd is pending -ESR,RAUDEL -EEG -Maintain keppra at 750 mg bid -seizure precaution # New onset seizure -witnessed X2 seizure -still confused post ictal -r/o infection -lactic acid #3.70 -UDS is positive for THC -MRI brain with gd is pending -ESR,RAUDEL -EEG -Maintain keppra at 750 mg bid -seizure precaution/ no driving -neurology follow up # Hypokalemia -Supplemented # Elevated lactic acid level # Lupus (systemic lupus erythematosus) -Not on any medications -Patient to be asked about her lupus symptoms and medications -We will defer to primary team -ESR and RAUDEL # UTI (urinary tract infection) -Macrobid 100 mg orally twice a day # Pt. is on Eliquis -? # DVT prophylaxis -On anticoagulation and GI prophylaxis Plan 1-MRI with gd 2- EEG 3- mantain keppra at750 mg bid 4-Seizure precaution 5- ESR ,raudel 6- Hold eliquis until after MRI brain
--- NOTE | 2021-10-02 09:18 | Progress Note ---
Assessment and Plan Assessment and plan: MRI brain; 10/02/2021; multiple focal lesions in both cerebral hemispheres and cerebellar hemispheres predominantly involving the cortex given the history of seizures these findings are consistent with status epilepticus no diffusion abnormalities which would suggest these are probably transient repeat MRI in 1 week (1) Acute encephalopathy Current Visit: Yes Status: Acute Plan to address problem: Patient is postictal and secondary to new onset seizures Patient had one episode of seizures and while in the emergency room--tonic-clonic type Patient started on IV Keppra To be transitioned to oral Keppra (2) New onset seizure Current Visit: Yes Status: Acute Plan to address problem: Patient started on IV Keppra Neurology consult requested Do not drive (3) Hypokalemia Current Visit: Yes Status: Acute Plan to address problem: Supplemented (4) Elevated lactic acid level Current Visit: Yes Status: Acute Plan to address problem: Nonspecific Probably secondary to seizures (5) Lupus (systemic lupus erythematosus) Current Visit: Yes Status: Chronic Qualifiers: Systemic lupus erythematosus type: unspecified Plan to address problem: Not on any medications Patient to be asked about her lupus symptoms and medications We will defer to primary team (6) UTI (urinary tract infection) Current Visit: Yes Status: Acute Qualifiers: Urinary tract infection type: acute cystitis Plan to address problem: Macrobid 100 mg orally twice a day (7) DVT prophylaxis Current Visit: Yes Status: Acute Plan to address problem: On anticoagulation and GI prophylaxis (8) Advance care planning Current Visit: Yes Status: Acute Plan to address problem: Patient education conducted, care plan discussed, diagnosis discussed with . Prognosis discussed. Patient is full code. acknowledges understanding and agreement with care plan. +30 minutes. Closely monitor the patient and adjust management as needed Neurology evaluation recommendation noted and appreciated MRI findings reviewed Plan of care reviewed with the patient and her nurse History Interval history: I have seen and examined the patient at the bedside Patient's chart and medications reviewed No new episodes of seizure Vital signs noted Hospitalist Physical - Constitutional Vitals: Temp Pulse Resp BP Pulse Ox 98.3 F 88 19 194/104 94 10/02/21 03:23 10/02/21 07:00 10/02/21 03:23 10/02/21 07:00 10/02/21 03:23 General appearance: Present: no acute distress, well-nourished - EENT Eyes: Present: PERRL, EOM intact - Neck Neck: Present: supple, normal ROM - Respiratory Respiratory effort: normal Respiratory: bilateral: diminished, negative: rales, rhonchi, wheezing - Cardiovascular Rhythm: regular Heart Sounds: Present: S1 & S2 - Extremities Extremities: no ischemia, No edema - Abdominal General gastrointestinal: soft, non-tender, non-distended, normal bowel sounds - Integumentary Integumentary: Present: clear, warm - Psychiatric Psychiatric: appropriate mood/affect - Neurologic Neurologic: moves all extremities HEART Score - HEART Score Troponin: Troponin T 0.017 ng/mL (0.00-0.029) 10/01/21 13:46 Troponin T 0.018 ng/mL (0.00-0.029) 10/01/21 13:46 Results - Labs CBC & Chem 7: 10/02/21 06:19 10/02/21 06:19 Labs: Laboratory Last Values WBC 4.9 K/mm3 (4.5-11.0) 10/02/21 06:19 RBC 4.02 M/mm3 (3.65-5.03) 10/02/21 06:19 Hgb 12.8 gm/dl (10.1-14.3) 10/02/21 06:19 Hct 38.1 % (30.3-42.9) 10/02/21 06:19 MCV 95 fl (79-97) 10/02/21 06:19 MCH 32 pg (28-32) 10/02/21 06:19 MCHC 34 % (30-34) 10/02/21 06:19 RDW 13.2 % (13.2-15.2) 10/02/21 06:19 Plt Count 139 K/mm3 (140-440) L 10/02/21 06:19 Lymph % (Auto) 22.2 % (13.4-35.0) 10/02/21 06:19 [place] % (Auto) 8.9 % (0.0-7.3) H 10/02/21 06:19 Eos % (Auto) 0.0 % (0.0-4.3) 10/02/21 06:19 Baso % (Auto) 1.0 % (0.0-1.8) 10/02/21 06:19 Lymph # (Auto) 1.1 K/mm3 (1.2-5.4) L 10/02/21 06:19 [place] # (Auto) 0.4 K/mm3 (0.0-0.8) 10/02/21 06:19 Eos # (Auto) 0.0 K/mm3 (0.0-0.4) 10/02/21 06:19 Baso # (Auto) 0.1 K/mm3 (0.0-0.1) 10/02/21 06:19 Seg Neutrophils % 67.9 % (40.0-70.0) 10/02/21 06:19 Seg Neutrophils # 3.4 K/mm3 (1.8-7.7) 10/02/21 06:19 PT 12.1 Sec. (12.2-14.9) L 10/01/21 13:46 INR 0.81 (0.87-1.13) L 10/01/21 13:46 APTT 24.7 Sec. (24.2-36.6) 10/01/21 13:46 Sodium 143 mmol/L (137-145) 10/02/21 06:19 Potassium 3.1 mmol/L (3.6-5.0) L 10/02/21 06:19 Chloride 108.1 mmol/L (98-107) H 10/02/21 06:19 Carbon Dioxide 20 mmol/L (22-30) L 10/02/21 06:19 Anion Gap 18 mmol/L 10/02/21 06:19 BUN 11 mg/dL (7-17) 10/02/21 06:19 Creatinine 1.0 mg/dL (0.6-1.2) 10/02/21 06:19 Estimated GFR > 60 ml/min 10/02/21 06:19 BUN/Creatinine Ratio 11 % 10/02/21 06:19 Glucose 92 mg/dL (65-100) 10/02/21 06:19 Lactic Acid 3.70 mmol/L (0.7-2.0) H* 10/01/21 13:46 Calcium 8.4 mg/dL (8.4-10.2) 10/02/21 06:19 Total Bilirubin 0.20 mg/dL (0.1-1.2) 10/02/21 06:19 Direct Bilirubin < 0.2 mg/dL (0-0.2) 10/01/21 13:46 Indirect Bilirubin 0.0 mg/dL 10/01/21 13:46 AST 15 units/L (5-40) 10/02/21 06:19 ALT 5 units/L (7-56) L 10/02/21 06:19 Alkaline Phosphatase 61 units/L (35-129) 10/02/21 06:19 Ammonia 21.0 umol/L (25-60) L 10/01/21 13:46 Total Creatine Kinase 57 units/L (30-135) 10/01/21 13:46 Troponin T 0.017 ng/mL (0.00-0.029) 10/01/21 13:46 Troponin T 0.018 ng/mL (0.00-0.029) 10/01/21 13:46 Total Protein 5.9 g/dL (6.3-8.2) L 10/02/21 06:19 Albumin 2.6 g/dL (3.9-5) L 10/02/21 06:19 Albumin/Globulin Ratio 0.8 % 10/02/21 06:19 HCG, Qual Negative (Negative) 10/01/21 13:46 Urine Color Yellow (Yellow) 10/01/21 Unknown Urine Turbidity Hazy (Clear) 10/01/21 Unknown Urine pH 7.0 (5.0-7.0) 10/01/21 Unknown Ur Specific [place] 1.009 (1.003-1.030) 10/01/21 Unknown Urine Protein >500 mg/dL (Negative) 10/01/21 Unknown Urine Glucose (UA) Neg mg/dL (Negative) 10/01/21 Unknown Urine Ketones Neg mg/dL (Negative) 10/01/21 Unknown Urine Blood Lg (Negative) 10/01/21 Unknown Urine Nitrite Neg (Negative) 10/01/21 Unknown Urine Bilirubin Neg (Negative) 10/01/21 Unknown Urine Urobilinogen < 2.0 mg/dL (<2.0) 10/01/21 Unknown Ur Leukocyte Esterase Neg (Negative) 10/01/21 Unknown Urine WBC (Auto) 17.0 /HPF (0.0-6.0) H 10/01/21 Unknown Urine RBC (Auto) 34.0 /HPF (0.0-6.0) 10/01/21 Unknown U Epithel Cells (Auto) 1.0 /HPF (0-13.0) 10/01/21 Unknown Urine Bacteria (Auto) 1+ /HPF (Negative) 10/01/21 Unknown Urine Opiates Screen Negative 10/01/21 Unknown Urine Methadone Screen Negative 10/01/21 Unknown Ur Barbiturates Screen Negative 10/01/21 Unknown Ur Phencyclidine Scrn Negative 10/01/21 Unknown Ur Amphetamines Screen Negative 10/01/21 Unknown U Benzodiazepines Scrn Negative 10/01/21 Unknown Urine Cocaine Screen Negative 10/01/21 Unknown U Marijuana (THC) Screen Positive 10/01/21 Unknown Drugs of Abuse Note Disclamer 10/01/21 Unknown Plasma/Serum Alcohol < 0.01 % (0-0.07) 10/01/21 13:46 Blood Type O POSITIVE 10/01/21 13:46 Antibody Screen Negative 10/01/21 13:46 Microbiology: Microbiology 10/01/21 13:46 Peripheral/Venous Blood Culture - Preliminary Culture in Progress 10/01/21 13:46 Peripheral/Venous Blood Culture - Preliminary Culture in Progress Haji/IV: Voiding Method External Female Catheter Active Medications - Current Medications Current Medications: Generic Name Dose Route Start Last Admin Trade Name Freq PRN Reason Stop Dose Admin Acetaminophen 650 mg 10/01/21 21:02 Acetaminophen 325 Mg Tab PO Q4H PRN Pain MILD(1-3)/Fever >100.5/SIMS Famotidine 20 mg 10/01/21 22:00 10/02/21 01:19 Famotidine 20 Mg Tab PO Not Given BID BENIGNO Heparin Sodium (Porcine) 5,000 unit 10/01/21 22:00 10/02/21 01:19 Heparin 5,000 Unit/1 Ml Vial SUB-Q Not Given Q12HR BENIGNO Hydralazine HCl 10 mg 10/02/21 06:14 10/02/21 07:00 Hydralazine 20 Mg/1 Ml Inj IV 10 mg Q6HR PRN Administration Blood Pressure Hydromorphone HCl 0.5 mg 10/01/21 21:02 Hydromorphone 1 Mg/1 Ml Inj IV Q3H PRN Pain , Severe (7-10) Dextrose/Sodium Chloride 1,000 mls @ 100 mls/hr 10/01/21 22:00 10/02/21 05:18 D5ns IV 100 mls/hr DIRECT BENIGNO Administration Levetiracetam 750 mg/ Dextrose 107.5 mls @ 400 mls/hr 10/02/21 05:00 10/02/21 05:17 IV 400 mls/hr Q12H BENIGNO Administration Metoclopramide HCl 10 mg 10/01/21 21:02 Metoclopramide 10 Mg/2 Ml Inj IV Q6H PRN Nausea And Vomiting Nitrofurantoin Macrocrystals 100 mg 10/02/21 10:00 Nitrofurantoin Monohyd/M-Cryst 100 Mg Cap PO Q12HR BENIGNO Ondansetron HCl 4 mg 10/01/21 21:02 Ondansetron 4 Mg/2 Ml Inj IV Q8H PRN Nausea And Vomiting Oxycodone/Acetaminophen 1 tab 10/01/21 21:02 Oxycodone /Acetaminophen 5-325mg Tab PO Q6H PRN Pain, Moderate (4-6) Potassium Chloride 40 meq 10/02/21 10:00 Potassium Chloride Er 20 Meq Tab PO QDAY BENIGNO Sodium Chloride 10 ml 10/01/21 22:00 10/02/21 04:00 Sodium Chloride 0.9% 10 Ml Flush Syringe IV 10 ml BID BENIGNO Administration Sodium Chloride 10 ml 10/01/21 21:02 Sodium Chloride 0.9% 10 Ml Flush Syringe IV PRN PRN LINE FLUSH Valsartan 160 mg 10/02/21 10:00 Valsartan 160mg Tab PO DAILY BENIGNO
[2021-10-02] MEDS ORDERED: POTASSIUM CHLORIDE ER 20 MEQ TAB PO ONE (10:00)
--- NOTE | 2021-10-02 10:02 | Electrocardiograph Report ---
[facility] Test Date: 2021-10-01 Test Time: 14:00:08 Pat Name: PEG PAN Department: Room: A481 Gender: F Fine Arts Model: ABI : 1980 Requested By: LUAN COCHRAN Order Number: [id number] Reading MD: Александр Perdomo Measurements Intervals [place] Rate: 84 P: 117 KS: 152 QRS: -18 QRSD: 74 T: 146 QT: 400 QTc: 474 Interpretive Statements Sinus rhythm Low voltage, extremity and precordial leads No R wave progression across precordial leads. Abnormal T, consider ischemia, lateral leads No previous ECG available for comparison Electronically Signed On 10-02-2021 10:01:39 EST by Александр Perdomo
[2021-10-02] MEDS: NITROFURANTOIN MONOHYD/M-CRYST 100 MG CAP PO SCH ×2 (11:10→21:26)
[2021-10-02] MEDS ORDERED: LORazepam 2 MG/ML VIAL IV ONE (14:00)
--- NOTE | 2021-10-02 20:05 | Magnetic Resonance Report ---
NONENHANCED AND CONTRAST ENHANCED MR SCAN OF THE BRAIN: INDICATION / CLINICAL INFORMATION: Seizure disorder. TECHNIQUE: Multiplanar, multisequence MR images of the brain obtained before and after 15 mL of Clariscan; pleas e note transverse FLAIR images and transverse ADC images not available in the [facility] PACS COMPARISON: CT scan of the head from 10/01/2021 FINDINGS: BRAIN / INTRACRANIAL CONTENTS: No acute ischemia, acute hemorrhage, mass effect, midline shift, or hy drocephalus. No chronic infarct or encephalomalacia. No significant white matter abnormality. Multiple focal lesion is predominantly involving the cerebral cortex sparing the adjacent white matte r seen in both cerebral hemispheres. In the cerebellar hemispheres, focal lesions are seen involving the delgado and the white matter. In the contrast enhanced series, no enhancing parenchymal or meningeal lesions. Hippocampi normal; volume loss in the cerebellar vermis Given the history of seizures, these lesions localizing to the cortex of consistent with postictal fi ndings. Though ADC map images are not available, since there are no diffusion abnormalities, these le sions appear to be transient. Please repeat the MRI scan in one week. Sparing of the brainstem and ba dominik ganglia not in favor of MELAS. Sparing adjacent white matter test not in favor of multiple infarc tions. CRANIOCERVICAL JUNCTION: No significant abnormality. VASCULAR FLOW-VOIDS: No significant abnormality. ORBITS: No significant abnormality of visualized orbits. SINUSES / MASTOIDS: No significant abnormality of visualized sinuses and mastoid air cells. ADDITIONAL FINDINGS: None. IMPRESSION: Multiple focal lesions in both cerebral hemispheres and cerebellar hemispheres predominantly involvin g the cortex; given the history of seizures, these findings are consistent with status epilepticus. N o diffusion abnormalities which would suggest these are probably transient Differential would be cerebritis and MELAS graft please repeat the MRI scan in one week Signer Name: Iva Simon MD Signed: 10/02/2021 8:00 PM Workstation Name: [id number]
[2021-10-02] MEDS: POTASSIUM CHLORIDE ER 20 MEQ TAB PO SCH (20:38)
[2021-10-02] MEDS: VALSARTAN 160MG TAB PO SCH (20:48)
[2021-10-03] MEDS: levETIRAcetam 750 MG in DEXTROSE 5% IN WATER 100 ML IV SCH ×2 (05:45→16:30)
[2021-10-03] MEDS: hydrALAZINE 20 MG/1 ML INJ IV PRN (05:46)
[2021-10-03] MEDS: NITROFURANTOIN MONOHYD/M-CRYST 100 MG CAP PO SCH ×2 (09:34→22:42)
[2021-10-03] MEDS: POTASSIUM CHLORIDE ER 20 MEQ TAB PO SCH (09:34)
[2021-10-03] MEDS: HEPARIN 5,000 UNIT/1 ML VIAL SUB-Q SCH ×2 (09:34→22:42)
[2021-10-03] MEDS: VALSARTAN 160MG TAB PO SCH (09:34)
[2021-10-03] MEDS: FAMOTIDINE 20 MG TAB PO SCH ×2 (09:34→22:42)
--- NOTE | 2021-10-03 19:39 | Progress Note ---
Assessment and Plan Assessment and plan: MRI brain; 10/02/2021; multiple focal lesions in both cerebral hemispheres and cerebellar hemispheres predominantly involving the cortex given the history of seizures these findings are consistent with status epilepticus no diffusion abnormalities which would suggest these are probably transient repeat MRI in 1 week --Acute encephalopathy Patient is postictal and secondary to new onset seizures Patient had one episode of seizures and while in the emergency room--tonic-clonic type Patient started on IV Keppra To be transitioned to oral Keppra --New onset seizure Patient started on IV Keppra Neurology consult requested Do not drive/seizure precautions No new episodes of seizures --Hypokalemia Supplemented --Elevated lactic acid level Nonspecific Probably secondary to seizures --Severe protein calorie malnutrition Nutrition supplements and supportive care Nutrition consult --Severe hypoalbuminemia; Albumin 2.6 nutrition consult Nutrition supplements and supportive care -Lupus (systemic lupus erythematosus) Not on any medications Patient to be asked about her lupus symptoms and medications We will defer to primary team -- UTI (urinary tract infection) Macrobid 100 mg orally twice a day --DVT prophylaxis On anticoagulation and GI prophylaxis --Advance care planning Patient education conducted, care plan discussed, diagnosis discussed with . Prognosis discussed. Patient is full code. acknowledges understanding and agreement with care plan. +30 minutes. Closely monitor the patient and adjust management as needed Neurology evaluation recommendation noted and appreciated MRI findings reviewed Plan of care reviewed with the patient and her nurse Seizure precautions History Interval history: Patient is seen and examined the patient at the bedside Patient's chart and medications reviewed Patient is lethargic noncommunicative Not in acute distress Vital signs noted Hospitalist Physical - Constitutional Vitals: Temp Pulse Resp BP Pulse Ox 98.0 F 98 H 20 190/112 100 10/03/21 15:49 10/03/21 15:49 10/03/21 15:49 10/03/21 15:49 10/03/21 15:49 General appearance: Present: no acute distress, well-nourished, other (Patient is lethargic noncommunicative) - EENT Eyes: Present: PERRL, EOM intact - Neck Neck: Present: supple, normal ROM - Respiratory Respiratory effort: normal Respiratory: bilateral: diminished, negative: rales, rhonchi, wheezing - Cardiovascular Rhythm: regular Heart Sounds: Present: S1 & S2 - Extremities Extremities: no ischemia, No edema - Abdominal General gastrointestinal: soft, non-tender, non-distended, normal bowel sounds - Integumentary Integumentary: Present: clear, warm - Psychiatric Psychiatric: other (Patient is lethargic, minimally communicative) - Neurologic Neurologic: moves all extremities HEART Score - HEART Score Troponin: Troponin T 0.017 ng/mL (0.00-0.029) 10/01/21 13:46 Troponin T 0.018 ng/mL (0.00-0.029) 10/01/21 13:46 Results - Labs CBC & Chem 7: 10/02/21 06:19 10/02/21 06:19 Labs: Laboratory Last Values WBC 4.9 K/mm3 (4.5-11.0) 10/02/21 06:19 RBC 4.02 M/mm3 (3.65-5.03) 10/02/21 06:19 Hgb 12.8 gm/dl (10.1-14.3) 10/02/21 06:19 Hct 38.1 % (30.3-42.9) 10/02/21 06:19 MCV 95 fl (79-97) 10/02/21 06:19 MCH 32 pg (28-32) 10/02/21 06:19 MCHC 34 % (30-34) 10/02/21 06:19 RDW 13.2 % (13.2-15.2) 10/02/21 06:19 Plt Count 139 K/mm3 (140-440) L 10/02/21 06:19 Lymph % (Auto) 22.2 % (13.4-35.0) 10/02/21 06:19 [place] % (Auto) 8.9 % (0.0-7.3) H 10/02/21 06:19 Eos % (Auto) 0.0 % (0.0-4.3) 10/02/21 06:19 Baso % (Auto) 1.0 % (0.0-1.8) 10/02/21 06:19 Lymph # (Auto) 1.1 K/mm3 (1.2-5.4) L 10/02/21 06:19 [place] # (Auto) 0.4 K/mm3 (0.0-0.8) 10/02/21 06:19 Eos # (Auto) 0.0 K/mm3 (0.0-0.4) 10/02/21 06:19 Baso # (Auto) 0.1 K/mm3 (0.0-0.1) 10/02/21 06:19 Seg Neutrophils % 67.9 % (40.0-70.0) 10/02/21 06:19 Seg Neutrophils # 3.4 K/mm3 (1.8-7.7) 10/02/21 06:19 PT 12.1 Sec. (12.2-14.9) L 10/01/21 13:46 INR 0.81 (0.87-1.13) L 10/01/21 13:46 APTT 24.7 Sec. (24.2-36.6) 10/01/21 13:46 Sodium 143 mmol/L (137-145) 10/02/21 06:19 Potassium 3.1 mmol/L (3.6-5.0) L 10/02/21 06:19 Chloride 108.1 mmol/L (98-107) H 10/02/21 06:19 Carbon Dioxide 20 mmol/L (22-30) L 10/02/21 06:19 Anion Gap 18 mmol/L 10/02/21 06:19 BUN 11 mg/dL (7-17) 10/02/21 06:19 Creatinine 1.0 mg/dL (0.6-1.2) 10/02/21 06:19 Estimated GFR > 60 ml/min 10/02/21 06:19 BUN/Creatinine Ratio 11 % 10/02/21 06:19 Glucose 92 mg/dL (65-100) 10/02/21 06:19 Lactic Acid 3.70 mmol/L (0.7-2.0) H* 10/01/21 13:46 Calcium 8.4 mg/dL (8.4-10.2) 10/02/21 06:19 Total Bilirubin 0.20 mg/dL (0.1-1.2) 10/02/21 06:19 Direct Bilirubin < 0.2 mg/dL (0-0.2) 10/01/21 13:46 Indirect Bilirubin 0.0 mg/dL 10/01/21 13:46 AST 15 units/L (5-40) 10/02/21 06:19 ALT 5 units/L (7-56) L 10/02/21 06:19 Alkaline Phosphatase 61 units/L (35-129) 10/02/21 06:19 Ammonia 21.0 umol/L (25-60) L 10/01/21 13:46 Total Creatine Kinase 57 units/L (30-135) 10/01/21 13:46 Troponin T 0.017 ng/mL (0.00-0.029) 10/01/21 13:46 Troponin T 0.018 ng/mL (0.00-0.029) 10/01/21 13:46 Total Protein 5.9 g/dL (6.3-8.2) L 10/02/21 06:19 Albumin 2.6 g/dL (3.9-5) L 10/02/21 06:19 Albumin/Globulin Ratio 0.8 % 10/02/21 06:19 HCG, Qual Negative (Negative) 10/01/21 13:46 Urine Color Yellow (Yellow) 10/01/21 Unknown Urine Turbidity Hazy (Clear) 10/01/21 Unknown Urine pH 7.0 (5.0-7.0) 10/01/21 Unknown Ur Specific [place] 1.009 (1.003-1.030) 10/01/21 Unknown Urine Protein >500 mg/dL (Negative) 10/01/21 Unknown Urine Glucose (UA) Neg mg/dL (Negative) 10/01/21 Unknown Urine Ketones Neg mg/dL (Negative) 10/01/21 Unknown Urine Blood Lg (Negative) 10/01/21 Unknown Urine Nitrite Neg (Negative) 10/01/21 Unknown Urine Bilirubin Neg (Negative) 10/01/21 Unknown Urine Urobilinogen < 2.0 mg/dL (<2.0) 10/01/21 Unknown Ur Leukocyte Esterase Neg (Negative) 10/01/21 Unknown Urine WBC (Auto) 17.0 /HPF (0.0-6.0) H 10/01/21 Unknown Urine RBC (Auto) 34.0 /HPF (0.0-6.0) 10/01/21 Unknown U Epithel Cells (Auto) 1.0 /HPF (0-13.0) 10/01/21 Unknown Urine Bacteria (Auto) 1+ /HPF (Negative) 10/01/21 Unknown Urine Opiates Screen Negative 10/01/21 Unknown Urine Methadone Screen Negative 10/01/21 Unknown Ur Barbiturates Screen Negative 10/01/21 Unknown Ur Phencyclidine Scrn Negative 10/01/21 Unknown Ur Amphetamines Screen Negative 10/01/21 Unknown U Benzodiazepines Scrn Negative 10/01/21 Unknown Urine Cocaine Screen Negative 10/01/21 Unknown U Marijuana (THC) Screen Positive 10/01/21 Unknown Drugs of Abuse Note Disclamer 10/01/21 Unknown Plasma/Serum Alcohol < 0.01 % (0-0.07) 10/01/21 13:46 Blood Type O POSITIVE 10/01/21 13:46 Antibody Screen Negative 10/01/21 13:46 Microbiology: Microbiology 10/01/21 13:46 Peripheral/Venous Blood Culture - Preliminary NO GROWTH AFTER 48 HOURS 10/01/21 13:46 Peripheral/Venous Blood Culture - Preliminary NO GROWTH AFTER 48 HOURS 10/01/21 Unknown Urine,Clean Catch Urine Culture - Final NO GROWTH AFTER 48 HOURS Haji/IV: Voiding Method Toilet Active Medications - Current Medications Current Medications: Generic Name Dose Route Start Last Admin Trade Name Freq PRN Reason Stop Dose Admin Acetaminophen 650 mg 10/01/21 21:02 Acetaminophen 325 Mg Tab PO Q4H PRN Pain MILD(1-3)/Fever >100.5/SIMS Famotidine 20 mg 10/01/21 22:00 10/03/21 09:34 Famotidine 20 Mg Tab PO 20 mg BID BENIGNO Administration Heparin Sodium (Porcine) 5,000 unit 10/01/21 22:00 10/03/21 09:34 Heparin 5,000 Unit/1 Ml Vial SUB-Q 5,000 unit Q12HR BENIGNO Administration Hydralazine HCl 10 mg 10/02/21 06:14 10/03/21 05:46 Hydralazine 20 Mg/1 Ml Inj IV 10 mg Q6HR PRN Administration Blood Pressure Hydralazine HCl 25 mg 10/03/21 22:00 Hydralazine 25 Mg Tab PO Q8HR BENIGNO Hydromorphone HCl 0.5 mg 10/01/21 21:02 Hydromorphone 1 Mg/1 Ml Inj IV Q3H PRN Pain , Severe (7-10) Dextrose/Sodium Chloride 1,000 mls @ 100 mls/hr 10/01/21 22:00 10/02/21 05:18 D5ns IV 100 mls/hr DIRECT BENIGNO Administration Levetiracetam 750 mg/ Dextrose 107.5 mls @ 400 mls/hr 10/02/21 05:00 10/03/21 16:30 IV 400 mls/hr Q12H BENIGNO Administration Metoclopramide HCl 10 mg 10/01/21 21:02 Metoclopramide 10 Mg/2 Ml Inj IV Q6H PRN Nausea And Vomiting Nitrofurantoin Macrocrystals 100 mg 10/02/21 10:00 10/03/21 09:34 Nitrofurantoin Monohyd/M-Cryst 100 Mg Cap PO 10/04/21 22:01 100 mg Q12HR BENIGNO Administration Ondansetron HCl 4 mg 10/01/21 21:02 Ondansetron 4 Mg/2 Ml Inj IV Q8H PRN Nausea And Vomiting Oxycodone/Acetaminophen 1 tab 10/01/21 21:02 Oxycodone /Acetaminophen 5-325mg Tab PO Q6H PRN Pain, Moderate (4-6) Potassium Chloride 40 meq 10/02/21 10:00 10/03/21 09:34 Potassium Chloride Er 20 Meq Tab PO 40 meq QDAY BENIGNO Administration Sodium Chloride 10 ml 10/01/21 22:00 10/03/21 09:34 Sodium Chloride 0.9% 10 Ml Flush Syringe IV 10 ml BID BENIGNO Administration Sodium Chloride 10 ml 10/01/21 21:02 Sodium Chloride 0.9% 10 Ml Flush Syringe IV PRN PRN LINE FLUSH Valsartan 160 mg 10/02/21 10:00 10/03/21 09:34 Valsartan 160mg Tab PO 160 mg DAILY BENIGNO Administration
[2021-10-03] MEDS: hydrALAZINE 25 MG TAB PO SCH (22:42)
[2021-10-04] MEDS ORDERED: ENALAPRILAT 2.5 MG/2 ML INJ IV STA (03:52)
[2021-10-04] MEDS: levETIRAcetam 750 MG in DEXTROSE 5% IN WATER 100 ML IV SCH (04:48)
[2021-10-04] MEDS: D5W/0.9% NACL 1,000 ML IV SCH ×2 (04:48→15:28)
[2021-10-04] MEDS: hydrALAZINE 25 MG TAB PO SCH ×3 (05:02→21:15)
[2021-10-04] MEDS: hydrALAZINE 20 MG/1 ML INJ IV PRN (08:28)
[2021-10-04] MEDS: FAMOTIDINE 20 MG TAB PO SCH ×2 (10:20→21:14)
[2021-10-04] MEDS: HEPARIN 5,000 UNIT/1 ML VIAL SUB-Q SCH (10:20)
[2021-10-04] MEDS: VALSARTAN 160MG TAB PO SCH (10:20)
[2021-10-04] MEDS: POTASSIUM CHLORIDE ER 20 MEQ TAB PO SCH (10:20)
[2021-10-04] MEDS: NITROFURANTOIN MONOHYD/M-CRYST 100 MG CAP PO SCH ×2 (10:21→21:13)
[2021-10-04] MEDS ORDERED: NON-FORMULARY EACH (Amlodipine 10 MG) PO SCH (11:00)
[2021-10-04] MEDS ORDERED: NON-FORMULARY EACH (Carvedilol 6.25 MG) PO SCH (11:00)
--- NOTE | 2021-10-04 11:00 | Progress Note ---
Assessment and Plan Assessment and plan: MRI brain; 10/02/2021; multiple focal lesions in both cerebral hemispheres and cerebellar hemispheres predominantly involving the cortex given the history of seizures these findings are consistent with status epilepticus no diffusion abnormalities which would suggest these are probably transient repeat MRI in 1 week --Accelerated hypertension-; Will resume home amlodipine, Coreg Continue hydralazine 25 mg 3 times a day Closely monitor blood pressures and adjust as needed -Acute encephalopathy Patient is postictal and secondary to new onset seizures Patient had one episode of seizures and while in the emergency room--tonic-clonic type Patient started on IV Keppra To be transitioned to oral Keppra --New onset seizure Patient started on IV Keppra Neurology consult requested Do not drive/seizure precautions No new episodes of seizures --Hypokalemia Supplemented --Elevated lactic acid level Nonspecific Probably secondary to seizures --Severe protein calorie malnutrition Nutrition supplements and supportive care Nutrition consult --Severe hypoalbuminemia; Albumin 2.6 nutrition consult Nutrition supplements and supportive care -Lupus (systemic lupus erythematosus) Not on any medications Patient to be asked about her lupus symptoms and medications We will defer to primary team -- UTI (urinary tract infection) Macrobid 100 mg orally twice a day --DVT prophylaxis On anticoagulation and GI prophylaxis --Advance care planning Patient education conducted, care plan discussed, diagnosis discussed with . Prognosis discussed. Patient is full code. acknowledges understanding and agreement with care plan. +30 minutes. Closely monitor the patient and adjust management as needed Neurology evaluation recommendation noted and appreciated MRI findings reviewed Plan of care reviewed with the patient and her nurse Seizure precautions History Interval history: I have seen and examined the patient at the bedside Patient's chart and medications reviewed Patient spouse is at the bedside Patient is more alert and awake responding to simple questions appropriately Complains of generalized weakness No new episodes of seizure Vital signs noted Hospitalist Physical - Constitutional Vitals: Temp Pulse Resp BP Pulse Ox 97.7 F 85 16 179/111 100 10/04/21 08:25 10/04/21 08:25 10/04/21 04:42 10/04/21 08:25 10/04/21 08:25 General appearance: Present: no acute distress, well-nourished - EENT Eyes: Present: PERRL, EOM intact - Neck Neck: Present: supple, normal ROM - Respiratory Respiratory effort: normal Respiratory: bilateral: diminished, negative: rales, rhonchi, wheezing - Cardiovascular Rhythm: regular Heart Sounds: Present: S1 & S2 - Extremities Extremities: no ischemia, No edema - Abdominal General gastrointestinal: non-tender, non-distended, normal bowel sounds - Integumentary Integumentary: Present: clear, warm - Psychiatric Psychiatric: appropriate mood/affect - Neurologic Neurologic: moves all extremities, other (Slightly lethargic) HEART Score - HEART Score Troponin: Troponin T 0.017 ng/mL (0.00-0.029) 10/01/21 13:46 Troponin T 0.018 ng/mL (0.00-0.029) 10/01/21 13:46 Results - Labs CBC & Chem 7: 10/02/21 06:19 10/02/21 06:19 Labs: Laboratory Last Values WBC 4.9 K/mm3 (4.5-11.0) 10/02/21 06:19 RBC 4.02 M/mm3 (3.65-5.03) 10/02/21 06:19 Hgb 12.8 gm/dl (10.1-14.3) 10/02/21 06:19 Hct 38.1 % (30.3-42.9) 10/02/21 06:19 MCV 95 fl (79-97) 10/02/21 06:19 MCH 32 pg (28-32) 10/02/21 06:19 MCHC 34 % (30-34) 10/02/21 06:19 RDW 13.2 % (13.2-15.2) 10/02/21 06:19 Plt Count 139 K/mm3 (140-440) L 10/02/21 06:19 Lymph % (Auto) 22.2 % (13.4-35.0) 10/02/21 06:19 [place] % (Auto) 8.9 % (0.0-7.3) H 10/02/21 06:19 Eos % (Auto) 0.0 % (0.0-4.3) 10/02/21 06:19 Baso % (Auto) 1.0 % (0.0-1.8) 10/02/21 06:19 Lymph # (Auto) 1.1 K/mm3 (1.2-5.4) L 10/02/21 06:19 [place] # (Auto) 0.4 K/mm3 (0.0-0.8) 10/02/21 06:19 Eos # (Auto) 0.0 K/mm3 (0.0-0.4) 10/02/21 06:19 Baso # (Auto) 0.1 K/mm3 (0.0-0.1) 10/02/21 06:19 Seg Neutrophils % 67.9 % (40.0-70.0) 10/02/21 06:19 Seg Neutrophils # 3.4 K/mm3 (1.8-7.7) 10/02/21 06:19 PT 12.1 Sec. (12.2-14.9) L 10/01/21 13:46 INR 0.81 (0.87-1.13) L 10/01/21 13:46 APTT 24.7 Sec. (24.2-36.6) 10/01/21 13:46 Sodium 143 mmol/L (137-145) 10/02/21 06:19 Potassium 3.1 mmol/L (3.6-5.0) L 10/02/21 06:19 Chloride 108.1 mmol/L (98-107) H 10/02/21 06:19 Carbon Dioxide 20 mmol/L (22-30) L 10/02/21 06:19 Anion Gap 18 mmol/L 10/02/21 06:19 BUN 11 mg/dL (7-17) 10/02/21 06:19 Creatinine 1.0 mg/dL (0.6-1.2) 10/02/21 06:19 Estimated GFR > 60 ml/min 10/02/21 06:19 BUN/Creatinine Ratio 11 % 10/02/21 06:19 Glucose 92 mg/dL (65-100) 10/02/21 06:19 Lactic Acid 3.70 mmol/L (0.7-2.0) H* 10/01/21 13:46 Calcium 8.4 mg/dL (8.4-10.2) 10/02/21 06:19 Total Bilirubin 0.20 mg/dL (0.1-1.2) 10/02/21 06:19 Direct Bilirubin < 0.2 mg/dL (0-0.2) 10/01/21 13:46 Indirect Bilirubin 0.0 mg/dL 10/01/21 13:46 AST 15 units/L (5-40) 10/02/21 06:19 ALT 5 units/L (7-56) L 10/02/21 06:19 Alkaline Phosphatase 61 units/L (35-129) 10/02/21 06:19 Ammonia 21.0 umol/L (25-60) L 10/01/21 13:46 Total Creatine Kinase 57 units/L (30-135) 10/01/21 13:46 Troponin T 0.017 ng/mL (0.00-0.029) 10/01/21 13:46 Troponin T 0.018 ng/mL (0.00-0.029) 10/01/21 13:46 Total Protein 5.9 g/dL (6.3-8.2) L 10/02/21 06:19 Albumin 2.6 g/dL (3.9-5) L 10/02/21 06:19 Albumin/Globulin Ratio 0.8 % 10/02/21 06:19 HCG, Qual Negative (Negative) 10/01/21 13:46 Urine Color Yellow (Yellow) 10/01/21 Unknown Urine Turbidity Hazy (Clear) 10/01/21 Unknown Urine pH 7.0 (5.0-7.0) 10/01/21 Unknown Ur Specific [place] 1.009 (1.003-1.030) 10/01/21 Unknown Urine Protein >500 mg/dL (Negative) 10/01/21 Unknown Urine Glucose (UA) Neg mg/dL (Negative) 10/01/21 Unknown Urine Ketones Neg mg/dL (Negative) 10/01/21 Unknown Urine Blood Lg (Negative) 10/01/21 Unknown Urine Nitrite Neg (Negative) 10/01/21 Unknown Urine Bilirubin Neg (Negative) 10/01/21 Unknown Urine Urobilinogen < 2.0 mg/dL (<2.0) 10/01/21 Unknown Ur Leukocyte Esterase Neg (Negative) 10/01/21 Unknown Urine WBC (Auto) 17.0 /HPF (0.0-6.0) H 10/01/21 Unknown Urine RBC (Auto) 34.0 /HPF (0.0-6.0) 10/01/21 Unknown U Epithel Cells (Auto) 1.0 /HPF (0-13.0) 10/01/21 Unknown Urine Bacteria (Auto) 1+ /HPF (Negative) 10/01/21 Unknown Urine Opiates Screen Negative 10/01/21 Unknown Urine Methadone Screen Negative 10/01/21 Unknown Ur Barbiturates Screen Negative 10/01/21 Unknown Ur Phencyclidine Scrn Negative 10/01/21 Unknown Ur Amphetamines Screen Negative 10/01/21 Unknown U Benzodiazepines Scrn Negative 10/01/21 Unknown Urine Cocaine Screen Negative 10/01/21 Unknown U Marijuana (THC) Screen Positive 10/01/21 Unknown Drugs of Abuse Note Disclamer 10/01/21 Unknown Plasma/Serum Alcohol < 0.01 % (0-0.07) 10/01/21 13:46 Blood Type O POSITIVE 10/01/21 13:46 Antibody Screen Negative 10/01/21 13:46 Microbiology: Microbiology 10/01/21 13:46 Peripheral/Venous Blood Culture - Preliminary NO GROWTH AFTER 48 HOURS 10/01/21 13:46 Peripheral/Venous Blood Culture - Preliminary NO GROWTH AFTER 48 HOURS 10/01/21 Unknown Urine,Clean Catch Urine Culture - Final NO GROWTH AFTER 48 HOURS Haji/IV: Voiding Method Toilet Active Medications - Current Medications Current Medications: Generic Name Dose Route Start Last Admin Trade Name Freq PRN Reason Stop Dose Admin Acetaminophen 650 mg 10/01/21 21:02 Acetaminophen 325 Mg Tab PO Q4H PRN Pain MILD(1-3)/Fever >100.5/SIMS Famotidine 20 mg 10/01/21 22:00 10/04/21 10:20 Famotidine 20 Mg Tab PO 20 mg BID BENIGNO Administration Heparin Sodium (Porcine) 5,000 unit 10/01/21 22:00 10/04/21 10:20 Heparin 5,000 Unit/1 Ml Vial SUB-Q 5,000 unit Q12HR BENIGNO Administration Hydralazine HCl 10 mg 10/02/21 06:14 10/04/21 08:28 Hydralazine 20 Mg/1 Ml Inj IV 10 mg Q6HR PRN Administration Blood Pressure Hydralazine HCl 25 mg 10/03/21 22:00 10/04/21 05:02 Hydralazine 25 Mg Tab PO 25 mg Q8HR BENIGNO Administration Hydromorphone HCl 0.5 mg 10/01/21 21:02 Hydromorphone 1 Mg/1 Ml Inj IV Q3H PRN Pain , Severe (7-10) Dextrose/Sodium Chloride 1,000 mls @ 100 mls/hr 10/01/21 22:00 10/04/21 04:48 D5ns IV 100 mls/hr DIRECT BENIGNO Administration Labetalol HCl 10 mg 10/04/21 00:09 10/04/21 00:23 Labetalol 20 Mg/4 Ml Inj IV 10 mg Q6HR PRN Administration Hypertension Levetiracetam 750 mg 10/04/21 22:00 Levetiracetam 500 Mg Tab PO BID BENIGNO Metoclopramide HCl 10 mg 10/01/21 21:02 Metoclopramide 10 Mg/2 Ml Inj IV Q6H PRN Nausea And Vomiting Miscellaneous Medication 10 mg 10/04/21 11:00 Amlodipine PO DAILY [facility] Miscellaneous Medication 6.25 mg 10/04/21 11:00 Carvedilol PO BID BENIGNO Nitrofurantoin Macrocrystals 100 mg 10/02/21 10:00 10/04/21 10:21 Nitrofurantoin Monohyd/M-Cryst 100 Mg Cap PO 10/04/21 22:01 100 mg Q12HR BENIGNO Administration Ondansetron HCl 4 mg 10/01/21 21:02 Ondansetron 4 Mg/2 Ml Inj IV Q8H PRN Nausea And Vomiting Oxycodone/Acetaminophen 1 tab 10/01/21 21:02 Oxycodone /Acetaminophen 5-325mg Tab PO Q6H PRN Pain, Moderate (4-6) Potassium Chloride 40 meq 10/02/21 10:00 10/04/21 10:20 Potassium Chloride Er 20 Meq Tab PO 40 meq QDAY BENIGNO Administration Sodium Chloride 10 ml 10/01/21 22:00 10/04/21 10:21 Sodium Chloride 0.9% 10 Ml Flush Syringe IV 10 ml BID BENIGNO Administration Sodium Chloride 10 ml 10/01/21 21:02 Sodium Chloride 0.9% 10 Ml Flush Syringe IV PRN PRN LINE FLUSH Valsartan 160 mg 10/02/21 10:00 10/04/21 10:20 Valsartan 160mg Tab PO 160 mg DAILY BENIGNO Administration
[2021-10-04] MEDS: carvediloL 6.25 MG TAB PO SCH ×2 (14:07→21:15)
[2021-10-04] MEDS: amLODIPine 10 MG TAB PO SCH (14:08)
[2021-10-04] MEDS: predniSONE 20 MG TAB PO SCH ×2 (14:08→21:14)
[2021-10-04] MEDS: levETIRAcetam 500 MG TAB PO SCH (21:14)
[2021-10-05] MEDS: HEPARIN 5,000 UNIT/1 ML VIAL SUB-Q SCH ×2 (01:39→09:40)
[2021-10-05] MEDS: hydrALAZINE 25 MG TAB PO SCH ×2 (08:43→13:33)
--- NOTE | 2021-10-05 09:04 | Progress Note ---
Assessment and Plan Assessment and plan: MRI brain; 10/02/2021; multiple focal lesions in both cerebral hemispheres and cerebellar hemispheres predominantly involving the cortex given the history of seizures these findings are consistent with status epilepticus no diffusion abnormalities which would suggest these are probably transient repeat MRI in [address] head; 10/01/2021 no acute abnormality --Accelerated hypertension-; Continue amlodipine , Coreg , hydralazine , losartan As needed IV labetalol , remains uncontrolled Closely monitor blood pressures and adjust as needed --Acute encephalopathy Patient is postictal and secondary to new onset seizures Patient had one episode of seizures and while in the emergency room--tonic-clonic type Patient started on IV Keppra To be transitioned to oral Keppra --New onset seizure No new episodes of seizure Patient started on IV Keppra Neurology consult requested Do not drive/seizure precautions No new episodes of seizures --Hypokalemia Supplemented --Elevated lactic acid level Nonspecific Probably secondary to seizures --Severe protein calorie malnutrition Nutrition supplements and supportive care Nutrition consult --Severe hypoalbuminemia; Albumin 2.6 nutrition consult Nutrition supplements and supportive care -Lupus (systemic lupus erythematosus) Not on any medications Patient to be asked about her lupus symptoms and medications We will defer to primary team -- UTI (urinary tract infection) Completed Macrobid 100 mg orally twice a dayx 3 days Advised plenty of fluids --DVT prophylaxis On anticoagulation and GI prophylaxis --Advance care planning Patient education conducted, care plan discussed, diagnosis discussed with . Prognosis discussed. Patient is full code. acknowledges understanding and agreement with care plan. +30 minutes. Closely monitor the patient and adjust management as needed Neurology evaluation recommendation noted and appreciated MRI findings reviewed Plan of care reviewed with the patient and her nurse Seizure precautions 10/05; patient's blood pressure remains uncontrolled Optimize medications, continue multiple antihypertensives Follow physical therapy occupational therapy Follow neurology recommendations Possible DC in 1 to 2 days if stable Hospitalist Physical - Constitutional Vitals: Temp Pulse Resp BP Pulse Ox 97.3 F L 80 18 185/105 97 10/05/21 08:29 10/05/21 06:07 10/05/21 08:29 10/05/21 08:43 10/05/21 06:07 General appearance: Present: no acute distress, well-nourished HEART Score - HEART Score Troponin: Troponin T 0.017 ng/mL (0.00-0.029) 10/01/21 13:46 Troponin T 0.018 ng/mL (0.00-0.029) 10/01/21 13:46 Results - Labs CBC & Chem 7: 10/02/21 06:19 10/02/21 06:19 Labs: Laboratory Last Values WBC 4.9 K/mm3 (4.5-11.0) 10/02/21 06:19 RBC 4.02 M/mm3 (3.65-5.03) 10/02/21 06:19 Hgb 12.8 gm/dl (10.1-14.3) 10/02/21 06:19 Hct 38.1 % (30.3-42.9) 10/02/21 06:19 MCV 95 fl (79-97) 10/02/21 06:19 MCH 32 pg (28-32) 10/02/21 06:19 MCHC 34 % (30-34) 10/02/21 06:19 RDW 13.2 % (13.2-15.2) 10/02/21 06:19 Plt Count 139 K/mm3 (140-440) L 10/02/21 06:19 Lymph % (Auto) 22.2 % (13.4-35.0) 10/02/21 06:19 [place] % (Auto) 8.9 % (0.0-7.3) H 10/02/21 06:19 Eos % (Auto) 0.0 % (0.0-4.3) 10/02/21 06:19 Baso % (Auto) 1.0 % (0.0-1.8) 10/02/21 06:19 Lymph # (Auto) 1.1 K/mm3 (1.2-5.4) L 10/02/21 06:19 [place] # (Auto) 0.4 K/mm3 (0.0-0.8) 10/02/21 06:19 Eos # (Auto) 0.0 K/mm3 (0.0-0.4) 10/02/21 06:19 Baso # (Auto) 0.1 K/mm3 (0.0-0.1) 10/02/21 06:19 Seg Neutrophils % 67.9 % (40.0-70.0) 10/02/21 06:19 Seg Neutrophils # 3.4 K/mm3 (1.8-7.7) 10/02/21 06:19 PT 12.1 Sec. (12.2-14.9) L 10/01/21 13:46 INR 0.81 (0.87-1.13) L 10/01/21 13:46 APTT 24.7 Sec. (24.2-36.6) 10/01/21 13:46 Sodium 143 mmol/L (137-145) 10/02/21 06:19 Potassium 3.1 mmol/L (3.6-5.0) L 10/02/21 06:19 Chloride 108.1 mmol/L (98-107) H 10/02/21 06:19 Carbon Dioxide 20 mmol/L (22-30) L 10/02/21 06:19 Anion Gap 18 mmol/L 10/02/21 06:19 BUN 11 mg/dL (7-17) 10/02/21 06:19 Creatinine 1.0 mg/dL (0.6-1.2) 10/02/21 06:19 Estimated GFR > 60 ml/min 10/02/21 06:19 BUN/Creatinine Ratio 11 % 10/02/21 06:19 Glucose 92 mg/dL (65-100) 10/02/21 06:19 Lactic Acid 3.70 mmol/L (0.7-2.0) H* 10/01/21 13:46 Calcium 8.4 mg/dL (8.4-10.2) 10/02/21 06:19 Total Bilirubin 0.20 mg/dL (0.1-1.2) 10/02/21 06:19 Direct Bilirubin < 0.2 mg/dL (0-0.2) 10/01/21 13:46 Indirect Bilirubin 0.0 mg/dL 10/01/21 13:46 AST 15 units/L (5-40) 10/02/21 06:19 ALT 5 units/L (7-56) L 10/02/21 06:19 Alkaline Phosphatase 61 units/L (35-129) 10/02/21 06:19 Ammonia 21.0 umol/L (25-60) L 10/01/21 13:46 Total Creatine Kinase 57 units/L (30-135) 10/01/21 13:46 Troponin T 0.017 ng/mL (0.00-0.029) 10/01/21 13:46 Troponin T 0.018 ng/mL (0.00-0.029) 10/01/21 13:46 Total Protein 5.9 g/dL (6.3-8.2) L 10/02/21 06:19 Albumin 2.6 g/dL (3.9-5) L 10/02/21 06:19 Albumin/Globulin Ratio 0.8 % 10/02/21 06:19 HCG, Qual Negative (Negative) 10/01/21 13:46 Urine Color Yellow (Yellow) 10/01/21 Unknown Urine Turbidity Hazy (Clear) 10/01/21 Unknown Urine pH 7.0 (5.0-7.0) 10/01/21 Unknown Ur Specific [place] 1.009 (1.003-1.030) 10/01/21 Unknown Urine Protein >500 mg/dL (Negative) 10/01/21 Unknown Urine Glucose (UA) Neg mg/dL (Negative) 10/01/21 Unknown Urine Ketones Neg mg/dL (Negative) 10/01/21 Unknown Urine Blood Lg (Negative) 10/01/21 Unknown Urine Nitrite Neg (Negative) 10/01/21 Unknown Urine Bilirubin Neg (Negative) 10/01/21 Unknown Urine Urobilinogen < 2.0 mg/dL (<2.0) 10/01/21 Unknown Ur Leukocyte Esterase Neg (Negative) 10/01/21 Unknown Urine WBC (Auto) 17.0 /HPF (0.0-6.0) H 10/01/21 Unknown Urine RBC (Auto) 34.0 /HPF (0.0-6.0) 10/01/21 Unknown U Epithel Cells (Auto) 1.0 /HPF (0-13.0) 10/01/21 Unknown Urine Bacteria (Auto) 1+ /HPF (Negative) 10/01/21 Unknown Urine Opiates Screen Negative 10/01/21 Unknown Urine Methadone Screen Negative 10/01/21 Unknown Ur Barbiturates Screen Negative 10/01/21 Unknown Ur Phencyclidine Scrn Negative 10/01/21 Unknown Ur Amphetamines Screen Negative 10/01/21 Unknown U Benzodiazepines Scrn Negative 10/01/21 Unknown Urine Cocaine Screen Negative 10/01/21 Unknown U Marijuana (THC) Screen Positive 10/01/21 Unknown Drugs of Abuse Note Disclamer 10/01/21 Unknown Plasma/Serum Alcohol < 0.01 % (0-0.07) 10/01/21 13:46 Blood Type O POSITIVE 10/01/21 13:46 Antibody Screen Negative 10/01/21 13:46 Microbiology: Microbiology 10/01/21 13:46 Peripheral/Venous Blood Culture - Preliminary NO GROWTH AFTER 72 HOURS 10/01/21 13:46 Peripheral/Venous Blood Culture - Preliminary NO GROWTH AFTER 72 HOURS Haji/IV: Voiding Method Toilet Active Medications - Current Medications Current Medications: Generic Name Dose Route Start Last Admin Trade Name Freq PRN Reason Stop Dose Admin Acetaminophen 650 mg 10/01/21 21:02 Acetaminophen 325 Mg Tab PO Q4H PRN Pain MILD(1-3)/Fever >100.5/SIMS Amlodipine Besylate 10 mg 10/04/21 11:00 10/04/21 14:08 Amlodipine 10 Mg Tab PO 10 mg DAILY BENIGNO Administration Carvedilol 6.25 mg 10/04/21 11:00 10/04/21 21:15 Carvedilol 6.25 Mg Tab PO 6.25 mg BID BENIGNO Administration Famotidine 20 mg 10/01/21 22:00 10/04/21 21:14 Famotidine 20 Mg Tab PO 20 mg BID BENIGNO Administration Heparin Sodium (Porcine) 5,000 unit 10/01/21 22:00 10/05/21 01:39 Heparin 5,000 Unit/1 Ml Vial SUB-Q Not Given Q12HR BENIGNO Hydralazine HCl 10 mg 10/02/21 06:14 10/04/21 08:28 Hydralazine 20 Mg/1 Ml Inj IV 10 mg Q6HR PRN Administration Blood Pressure Hydralazine HCl 25 mg 10/03/21 22:00 10/05/21 08:43 Hydralazine 25 Mg Tab PO 25 mg Q8HR BENIGNO Administration Hydromorphone HCl 0.5 mg 10/01/21 21:02 Hydromorphone 1 Mg/1 Ml Inj IV Q3H PRN Pain , Severe (7-10) Dextrose/Sodium Chloride 1,000 mls @ 100 mls/hr 10/01/21 22:00 10/04/21 15:28 D5ns IV 100 mls/hr DIRECT BENIGNO Administration Labetalol HCl 10 mg 10/04/21 10:58 10/05/21 04:24 Labetalol 20 Mg/4 Ml Inj IV 10 mg Q4H PRN Administration Hypertension Levetiracetam 750 mg 10/04/21 22:00 10/04/21 21:14 Levetiracetam 500 Mg Tab PO 750 mg BID BENIGNO Administration Metoclopramide HCl 10 mg 10/01/21 21:02 Metoclopramide 10 Mg/2 Ml Inj IV Q6H PRN Nausea And Vomiting Ondansetron HCl 4 mg 10/01/21 21:02 Ondansetron 4 Mg/2 Ml Inj IV Q8H PRN Nausea And Vomiting Oxycodone/Acetaminophen 1 tab 10/01/21 21:02 Oxycodone /Acetaminophen 5-325mg Tab PO Q6H PRN Pain, Moderate (4-6) Potassium Chloride 40 meq 10/02/21 10:00 10/04/21 10:20 Potassium Chloride Er 20 Meq Tab PO 40 meq QDAY BENIGNO Administration Prednisone 20 mg 10/04/21 14:00 10/04/21 21:14 Prednisone 20 Mg Tab PO 20 mg BID BENIGNO Administration Sodium Chloride 10 ml 10/01/21 22:00 10/04/21 10:21 Sodium Chloride 0.9% 10 Ml Flush Syringe IV 10 ml BID BENIGNO Administration Sodium Chloride 10 ml 10/01/21 21:02 Sodium Chloride 0.9% 10 Ml Flush Syringe IV PRN PRN LINE FLUSH Valsartan 160 mg 10/02/21 10:00 10/04/21 10:20 Valsartan 160mg Tab PO 160 mg DAILY BENIGNO Administration
[2021-10-05] MEDS: POTASSIUM CHLORIDE ER 20 MEQ TAB PO SCH (09:40)
[2021-10-05] MEDS: FAMOTIDINE 20 MG TAB PO SCH (09:41)
[2021-10-05] MEDS: levETIRAcetam 500 MG TAB PO SCH (09:41)
[2021-10-05] MEDS: predniSONE 20 MG TAB PO SCH (09:42)
[2021-10-05] MEDS: amLODIPine 10 MG TAB PO SCH (09:43)
[2021-10-05] MEDS: carvediloL 6.25 MG TAB PO SCH (09:43)
[2021-10-05] MEDS: VALSARTAN 160MG TAB PO SCH (09:47)
[2021-10-05 11:14] LABS: Chol/HDL Ratio 6.1 %
[2021-10-05 17:07] VITALS: BP 166/92
--- NOTE | 2021-10-05 17:47 | Discharge Summary ---
Providers - Providers Date of Admission: 10/01/21 21:02 Date of discharge: 10/05/21 Attending physician: GEORGES NELSON 10/01/21 21:02 Consult to Physician [CONS] Routine Comment: Consulting Provider: YAS BOGGS Physician Instructions: Reason For Exam: New onset seizures, acute encephalopathy 10/04/21 13:20 Occupational Therapy Evaluate and Treat [CONS] Routine Comment: Reason For Exam: weakness secondary to illness Physical Therapy Evaluation and Treat [CONS] Routine Comment: Reason For Exam: weakness Primary care physician: JOSE MEAD Hospitalization Condition: Stable Disposition: 30 STILL A PATIENT Exam - Constitutional Vitals: Temp Pulse Resp BP Pulse Ox 97.3 F L 84 16 166/92 97 10/05/21 08:29 10/05/21 15:00 10/05/21 11:48 10/05/21 17:06 10/05/21 11:00 Plan Activity: advance as tolerated, no driving until cleared by PCP, fall precautions, other (Seizure precautions) Diet: other (Cardiac diet) Special Instructions: other (seizure precautions) Additional Instructions: Do not drive until cleared by PMD neurologist physician. Do not operate heavy machinery. If you have worsening symptoms contact MD or go to the nearest emergency room. Seizure precautions, fall precautions Follow up with: PRIMARY CARE, [Referring] - 3-5 Days CELINA SILVA MD [Staff Physician] - 7 Days Prescriptions: amLODIPine 10 mg PO DAILY #30 hydrALAZINE [Apresoline TAB] 25 mg PO Q8HR #90 tablet carvediloL 6.25 mg PO BID #60 predniSONE [Deltasone] 10 mg PO DAILY #10 tablet Valsartan [Diovan] 160 mg PO DAILY #30 tablet Folic Acid 1 mg PO DAILY #30 levETIRAcetam [Keppra TAB] 750 mg PO BID #60 Furosemide [Lasix TAB] 20 mg PO DAILY #30 Famotidine [Pepcid] 20 mg PO BID #20 tablet oxyCODONE /ACETAMINOPHEN [Percocet 5/325 mg] 1 tab PO QHS PRN #6 tablet PRN Reason: Pain, Moderate (4-6)
== END 2021-10-05 18:11 | disposition home or self-care (01) | DRG 100 ==
LOC: ED 13:16 → 4A 21:02
PROVIDERS: ADMIT Internal Medicine; ATTEND Internal Medicine
DX: R56.9 Unspecified convulsions (principal); E43 Unspecified severe protein-calorie malnutrition; N30.00 Acute cystitis without hematuria; I16.1 Hypertensive emergency; E87.6 Hypokalemia; M32.9 Systemic lupus erythematosus, unspecified; Z98.51 Tubal ligation status; F17.200 Nicotine dependence, unspecified, uncomplicated; J45.909 Unspecified asthma, uncomplicated; Z68.27 Body mass index [BMI] 27.0-27.9, adult
CPT/HCPCS: 36415; 70450; 70553; 71045; 80048; 80053; 80061; 80076; 80307; 80320; 81001; 82140; 82550; 82962; 83735; 84132; 84484; 84703; 85025; 85610; 85730; 86850; 86900; 86901; 87040; 87086; 93005; 93010; 95819; G0378; J3490; J7060; Q0162; A9575; G0480; J0360; J1644; J1953; J2060; J2270; J2405; J3480; J7030; J7042